=== PATIENT | male | born 1940 | race Caucasian/White ===

== ENCOUNTER → 2020-12-08 09:56 | Outpatient (BNVA) | payer MEDICARE, SELFPAY | PROVIDERS: PCP Internal Medicine; Visit Provider Urology | DX: Z13.89 Encounter for screening for other disorder (principal) | CPT/HCPCS: Q3014 ==

== ENCOUNTER 2021-02-09 12:18 | Outpatient (REF) | payer MEDICARE, SELFPAY ==
[2021-02-09 13:52] LABS: Glucose Urine UA NEG (NEG); Leukocyte Esterase Urine NEG (NEG); Nitrite Urine NEG (NEG); Urine Blood 3+ (NEG); Urine Ketones NEG (NEG); Urine Protein NEG (NEG-TRACE)
[2021-02-09 13:55] LABS: Appearance Urine CLOUDY; Color Urine DARK YELLOW
[2021-02-09 14:10] LABS: Renal Epithelial Cells Urine TRACE /LPF; Squamous Epithelial Cell Urine TRACE /LPF; WBC Urine 0-2 /HPF (0-4)
== END 2021-02-09 12:19 | disposition home or self-care (01) ==
LOC: HO.LAB 12:18
PROVIDERS: PCP Internal Medicine; Visit Provider Urology
DX: N30.91 Cystitis, unspecified with hematuria (principal)
CPT/HCPCS: 81001; 87086

== ENCOUNTER 2021-02-15 11:16 | Outpatient (REF) | payer MEDICARE, SELFPAY ==
[2021-02-15 12:04] LABS: Glucose Urine UA NEG (NEG); Leukocyte Esterase Urine NEG (NEG); Nitrite Urine POS (NEG); PH 6.5 (5.0-8.0); Specific Gravity - Urine 1.025 (1.005-1.025); Urine Blood 3+ (NEG); Urine Ketones NEG (NEG); Urine Protein 1+ MG/DL (NEG-TRACE)
[2021-02-15 12:07] LABS: Appearance Urine CLOUDY; Color Urine BROWN
[2021-02-15 12:13] LABS: RBC Urine TNTC /HPF (0); Squamous Epithelial Cell Urine 1+ /LPF; WBC Urine 0 /HPF (0-4)
== END 2021-02-15 11:17 | disposition home or self-care (01) ==
LOC: HO.LAB 11:16
PROVIDERS: PCP Internal Medicine; Visit Provider Urology
DX: N30.91 Cystitis, unspecified with hematuria (principal)
CPT/HCPCS: 81001

== ENCOUNTER 2021-03-15 09:43 | Outpatient (REF) | payer MEDICARE, SELFPAY ==
[2021-03-15 13:42] LABS: Urine Cytology See Pathology rpt
== END 2021-03-15 09:44 | disposition home or self-care (01) ==
LOC: CF 09:43
PROVIDERS: Visit Provider Urology
DX: N30.91 Cystitis, unspecified with hematuria (principal); C67.9 Malignant neoplasm of bladder, unspecified; N30.40 Irradiation cystitis without hematuria
CPT/HCPCS: 52000; 81002; 88112; 99212

== ENCOUNTER 2021-04-11 06:14 | Day surgery (SDC) | payer MEDICARE, SELFPAY ==
[2021-04-06 13:28] VITALS: BMI 27.4
--- NOTE | 2021-04-07 10:49 | P.CONAN_ITS ---
Documented by User: Betty Crandallney 04/07/21 10:49 HPI - Anesthesia Eval Consult details Narrative: 80yo M for TUR Bladder Tumor with Retrograde PMFSH Active Problems Active Problems: All Active Problems (Updated 04/06/21 @ 13:32 by Lexi Garvin) Prostate cancer (Acute) Radiation cystitis (Acute) Hematuria due to cystitis (Acute) Bladder cancer (Acute) Past Medical History Medical History (Updated 04/11/21 @ 07:48 by Sima Lopes) COVID-19 COVID-19 vaccine administered Elevated cholesterol Erectile dysfunction after radical prostatectomy GERD (gastroesophageal reflux disease) Gross hematuria History of COVID-19 HTN (hypertension) Hx of radiation therapy Peptic ulcer Prostate cancer Radiation cystitis Surgical History Surgical History H/O colonoscopy History of surgery Hx of radical prostatectomy Social History Social History Are you a primary manager home healthcare to a significant other at home: No Do you presently have visiting nurse or other home services: No Patient Tobacco Use Status: Former Tobacco user Quit Date: age 30 Tobacco use type: Cigarette Use of substances other than those prescribed or required for medical reasons: No Have you been hit, kicked, punched, or otherwise hurt by someone within the past year? If so, by whom?: No Are you DNR?: No Advance Directives: Yes (patients's son-advised to bring copy day of surgery) Advance Directives Information Provided: No Advance Directives on File: No Advance Directives Date on File: 04/11/21 Recently lost weight without trying: No Eating poorly because of decreased appetite: No Nutrition Risks: No Nutritional Risk Poor oral hygiene: No (upper partial) Meds Allergies Allergy/AdvReac Type Severity Reaction Status Date / Time NSAIDS (Non-Steroidal Allergy Severe caused Verified 04/06/21 13:34 Anti-Inflamma peptic ulcer Home Medications Medication Instructions Recorded Confirmed Last Taken Type albuterol sulfate 90 mcg/actuation 2 puff PO QID PRN 12/08/20 04/06/21 Unknown History aerosol inhaler amlodipine 10 mg-benazepril 40 mg 1 cap PO DAILY 12/08/20 04/06/21 Unknown History capsule atorvastatin 10 mg tablet 10 mg PO BEDTIME 12/08/20 04/06/21 Unknown History budesonide-formoterol HFA 80 2 puff PO BID 12/08/20 04/11/21 04/11/21 05:00 History mcg-4.5 mcg/actuation aerosol inhaler carvedilol 6.25 mg tablet 6.25 mg PO BID 12/08/20 04/11/21 04/11/21 05:00 History cetirizine 10 mg tablet 10 mg PO DAILY 12/08/20 04/11/21 04/11/21 05:00 History clindamycin HCl 300 mg capsule 300 mg PO TID 12/08/20 Unknown History famotidine 20 mg tablet 20 mg PO BID 12/08/20 Unknown History flu vacc [id number](65yr up)-PF 240 ml IM 12/08/20 Unknown History mcg/0.7 mL intramuscular syringe fluticasone propionate 50 1 spray INTRANASAL DAILY 12/08/20 04/06/21 Unknown History mcg/actuation nasal spray,suspension inhalational spacing device #1 ea 12/08/20 Unknown History omeprazole magnesium [Prilosec OTC] 20 mg PO DAILY PRN 04/06/21 04/06/21 Unknown History Exam Exam Date and Time: April 07, 2021 1049 Height,Weight and Vital Signs: Height 6 ft 1 in Weight 94.347 kg Assessment and Plan Assessment Anesthesia Assessment: Chart Reviewed Documented by User: Sima Lopes 04/11/21 07:50 [facility] Past Medical History Medical History (Updated 04/11/21 @ 07:48 by Sima Lopes) COVID-19 COVID-19 vaccine administered Elevated cholesterol Erectile dysfunction after radical prostatectomy GERD (gastroesophageal reflux disease) Gross hematuria History of COVID-19 HTN (hypertension) Hx of radiation therapy Peptic ulcer Prostate cancer Radiation cystitis Family History Family history of problems with anesthesia: No Surgical History Surgical History H/O colonoscopy History of surgery Hx of radical prostatectomy History of Problems with Anesthesia: No Social History Social History Are you a primary manager home healthcare to a significant other at home: No Do you presently have visiting nurse or other home services: No Patient Tobacco Use Status: Former Tobacco user Quit Date: age 30 Tobacco use type: Cigarette Use of substances other than those prescribed or required for medical reasons: No Have you been hit, kicked, punched, or otherwise hurt by someone within the past year? If so, by whom?: No Are you DNR?: No Advance Directives: Yes (patients's son-advised to bring copy day of surgery) Advance Directives Information Provided: No Advance Directives on File: No Advance Directives Date on File: 04/11/21 Recently lost weight without trying: No Eating poorly because of decreased appetite: No Nutrition Risks: No Nutritional Risk Poor oral hygiene: No (upper partial) Meds Allergies Allergy/AdvReac Type Severity Reaction Status Date / Time NSAIDS (Non-Steroidal Allergy Severe caused Verified 04/06/21 13:34 Anti-Inflamma peptic ulcer Home Medications Medication Instructions Recorded Confirmed Last Taken Type albuterol sulfate 90 mcg/actuation 2 puff PO QID PRN 12/08/20 04/06/21 Unknown History aerosol inhaler amlodipine 10 mg-benazepril 40 mg 1 cap PO DAILY 12/08/20 04/06/21 Unknown History capsule atorvastatin 10 mg tablet 10 mg PO BEDTIME 12/08/20 04/06/21 Unknown History budesonide-formoterol HFA 80 2 puff PO BID 12/08/20 04/11/21 04/11/21 05:00 History mcg-4.5 mcg/actuation aerosol inhaler carvedilol 6.25 mg tablet 6.25 mg PO BID 12/08/20 04/11/21 04/11/21 05:00 History cetirizine 10 mg tablet 10 mg PO DAILY 12/08/20 04/11/21 04/11/21 05:00 History clindamycin HCl 300 mg capsule 300 mg PO TID 12/08/20 Unknown History famotidine 20 mg tablet 20 mg PO BID 12/08/20 Unknown History flu vacc [id number](65yr up)-PF 240 ml IM 12/08/20 Unknown History mcg/0.7 mL intramuscular syringe fluticasone propionate 50 1 spray INTRANASAL DAILY 12/08/20 04/06/21 Unknown History mcg/actuation nasal spray,suspension inhalational spacing device #1 ea 12/08/20 Unknown History omeprazole magnesium [Prilosec OTC] 20 mg PO DAILY PRN 04/06/21 04/06/21 Unknown History Exam Height,Weight and Vital Signs: Vital Signs Temp Pulse Resp BP Pulse Ox 04/11/21 06:51 97 F 62 20 142/74 H 94 Airway Mallampati Class: II TM Dist: >3cm Neck ROM: Full Partial: Upper Heart: RRR Lungs: CTAB Assessment and Plan Assessment Anesthesia Assessment: Anesthesia Plan Discussed and Chart Reviewed Final Anesthetic Review NPO: Yes ASA Class: II Final Preanesthetic Review: No Changes in Pt Med Stat, Meds/Allgs Chart Re viewed, Consent Obtained/Reviewed and Anes Risks/Benef Reviewed Patient Risk: Low Procedure Risk: Low Anesthetic Plan Anesthetic Plan: GA Disposition: Standard PACU
--- NOTE | ~2021-04-11 | FL_ITS ---
EXAMINATION: FL XR WITH IMAGES CLINICAL INFORMATION: Bilateral retrogrades. COMPARISON: None TECHNIQUE: Fluoroscopy performed by Dr. Mp Bashir. Fluoroscopy Time: 0.5 minutes. Total Dose: 8.88 mGy. Images: 3. FINDINGS: There is suggestion of partial duplicated collecting system on both sides with upper pole infundibulum merging with the extrarenal pelves. There is no hydronephrosis or caliectasis. No pelvicalyceal filling defect demonstrated. FL/FL guidance in OR IMPRESSION: No hydronephrosis. Partial bilateral duplicated collecting system.
[2021-04-11] MEDS: levoFLOXacin 500 MG TABLET PO (06:40)
[2021-04-11] MEDS: Lactated Ringers 1,000 ML 100 ML IVCONT (06:46)
[2021-04-11 06:51] VITALS: BP 142/74; PULSE 62; RESP 20; TEMP 36.1; O2SAT 94
--- NOTE | 2021-04-11 07:17 | MHC.SHP ---
Pre-Procedural Eval Section A The patient is an INPATIENT: No Changes since office visit: No Cold of Flu in the past 2 weeks, No New Medical Problems, No Changes in Medication and No Patient answered all questions The History & Physical has been completed within 30 days and I have reviewed it.: Yes Section B Chief Complaint: malignant neoplasm ob bladder Allergies: Allergies Allergy/AdvReac Type Severity Reaction Status Date / Time NSAIDS (Non-Steroidal Allergy Severe caused Verified 04/06/21 13:34 Anti-Inflamma peptic ulcer Plan Diagnosis/Plan: Unchanged (TURBT with retrogrades) I have reviewed the history and physical and performed a pertinent physical examination on my patient. No changes have occurred unless specified.
--- NOTE | 2021-04-11 07:25 | MHC.SHP ---
Pre-Procedural Eval Section A The patient is an INPATIENT: No Changes since office visit: No Cold of Flu in the past 2 weeks, No New Medical Problems, No Changes in Medication and No Patient answered all questions The History & Physical has been completed within 30 days and I have reviewed it.: Yes Section B Chief Complaint: malignant neoplasm ob bladder Allergies: Allergies Allergy/AdvReac Type Severity Reaction Status Date / Time NSAIDS (Non-Steroidal Allergy Severe caused Verified 04/06/21 13:34 Anti-Inflamma peptic ulcer Plan Diagnosis/Plan: Unchanged (bladder washout) I have reviewed the history and physical and performed a pertinent physical examination on my patient. No changes have occurred unless specified.
[2021-04-11 08:30] VITALS: BP 126/68; PULSE 62; RESP 16; TEMP 36.1; O2SAT 96
[2021-04-11 08:35] VITALS: BP 132/62; PULSE 60; RESP 16; O2SAT 93
[2021-04-11 08:40] VITALS: BP 135/76; PULSE 63; RESP 16; O2SAT 93
--- NOTE | 2021-04-11 08:40 | W.PM.OPN ---
Operative Note Operative Note Date of Service: 04/11/21 Narrative: PreOperative Diagnosis: bladder cancer Post Operative Diagnosis: bladder cancer Procedure: TURBT with bilateral retrograde Surgeon: Dr Mp Bashir Anesthesia: general Indications for procedure: This is a 80-year-old male. Status post radiation for prostate cancer. Radiation cystitis. Presents with hematuria. On cystoscopy in office found to have superficial changes in various areas of his bladder mucosa. Procedure: After informed consent was verified the patient was brought to the operating room and placed in a supine position. anesthesia was administered per protocol. the patient was placed in a modified dorsal lithotomy position and prepped and draped in a sterile fashion. Safety pause time-out was performed. Antibiotics were confirmed. A 22 Persian cystoscope was inserted without difficulty. No evidence of abnormality was seen in the anterior or posterior urethra. The bladder had evidence of radiation cystitis with neovascularity and mucosal change. Bilateral retrograde examination performed. Both distal ureteric orifices were narrowed secondary to radiation change. Distal portion of the ureter was also narrowed. A 26 Persian continuous flow resectoscope was inserted per urethra. The visual obturator was used in order to minimize potential for urethral damage. Areas of mucosal change with fulgurated. Using the narrow beam light function at risk areas of the mucosa were identified info graded. On the right side wall there was an area of change with fat deposit. This was resected and pathology was sent. The patient tolerated the procedure well. They were extubated in the operating room and transferred in stable condition to the recovery area. Pathology: Bladder cancer sample Drains: None
[2021-04-11 08:45] VITALS: BP 141/71; PULSE 60; RESP 16; O2SAT 93
[2021-04-11] MEDS: Phenazopyridine HCL 100 MG TABLET PO (08:51)
[2021-04-11 09:00] VITALS: BP 143/72; PULSE 60; RESP 16; TEMP 36.1; O2SAT 94
== END 2021-04-11 09:33 | disposition home or self-care (01) ==
PROVIDERS: PCP Internal Medicine; Visit Provider Urology
PROC: 0TBB8ZZ Excision of Bladder, Via Natural or Artificial Opening Endoscopic (ICD-10-PCS; CPT 52234; principal; 2021-04-11 07:30)
DX: C67.9 Malignant neoplasm of bladder, unspecified (principal); N30.41 Irradiation cystitis with hematuria; I10 Essential (primary) hypertension; Z85.46 Personal history of malignant neoplasm of prostate; Z79.899 Other long term (current) drug therapy; Z88.6 Allergy status to analgesic agent
CPT/HCPCS: 52234; 88307; 88341; 88342; J1100; J2250; J2405; J3010; Q9967

== ENCOUNTER 2021-04-11 14:59 | Emergency (ER) | payer MEDICARE, SELFPAY ==
[2021-04-11 15:33] VITALS: BP 155/79; PULSE 73; RESP 18; TEMP 36.8; O2SAT 96; BMI 26.9
[2021-04-11 16:50] VITALS: BP 161/79; PULSE 78; RESP 16; TEMP 36.1; O2SAT 100
--- NOTE | 2021-04-11 17:11 | PC.NURSE ---
Patient coming in after having surgery on his bladder today and being discharged without voiding. Per pt he still has not voided despite intake of fluids- feels the need but is unable to. Bladder scan showed 425mL- Dr. Montanez made aware of the situation and verbal order for rocha placed. 16f rocha catheter placed with immediate drainage of >400ml of tomas colored urine. Will rescan bladder.
--- NOTE | 2021-04-11 17:15 | ED_ITS ---
HPI - Male Genitourinary General Chief complaint: Urogenital-Male Stated complaint: diff urinating Time Seen by Provider: 04/11/21 17:15 Source: patient Mode of arrival: ambulatory Limitations: no limitations History of Present Illness HPI Narrative: Patient had cystoscopy today for bladder tumor after procedure patient could not urinate came here with bladder scan showing urine about 425 cc patient had history of prostate cancer in the past and had TURP surgery also reporting Hardin catheter patient had about 600 cc urine output Related Data Home Medications Medication Instructions Recorded Confirmed albuterol sulfate 90 mcg/actuation 2 puff PO QID PRN 12/08/20 04/06/21 aerosol inhaler amlodipine 10 mg-benazepril 40 mg 1 cap PO DAILY 12/08/20 04/06/21 capsule atorvastatin 10 mg tablet 10 mg PO BEDTIME 12/08/20 04/06/21 budesonide-formoterol HFA 80 2 puff PO BID 12/08/20 04/11/21 mcg-4.5 mcg/actuation aerosol inhaler carvedilol 6.25 mg tablet 6.25 mg PO BID 12/08/20 04/11/21 cetirizine 10 mg tablet 10 mg PO DAILY 12/08/20 04/11/21 clindamycin HCl 300 mg capsule 300 mg PO TID 12/08/20 famotidine 20 mg tablet 20 mg PO BID 12/08/20 flu vacc [id number](65yr up)-PF 240 ml IM 12/08/20 mcg/0.7 mL intramuscular syringe fluticasone propionate 50 1 spray INTRANASAL DAILY 12/08/20 04/06/21 mcg/actuation nasal spray,suspension inhalational spacing device #1 ea 12/08/20 omeprazole magnesium [Prilosec OTC] 20 mg PO DAILY PRN 04/06/21 04/06/21 Previous Rx's Medication Instructions Recorded ciprofloxacin HCl 250 mg tablet 250 mg PO BID 3 Days #6 tab 02/11/21 sulfamethoxazole 800 1 tab PO BID 7 Days #14 tab 02/17/21 mg-trimethoprim 160 mg tablet tranexamic acid 650 mg PO BID 5 Days #10 tab 04/11/21 trimethoprim 100 mg PO Q12H 10 Days #20 tab 04/11/21 Allergies Allergy/AdvReac Type Severity Reaction Status Date / Time NSAIDS (Non-Steroidal Allergy Severe caused Verified 04/06/21 13:34 Anti-Inflamma peptic ulcer Review of Systems Review of Systems: Yes all other systems are reviewed and are negative [facility] Past Medical History Medical History COVID-19 COVID-19 vaccine administered Elevated cholesterol Erectile dysfunction after radical prostatectomy GERD (gastroesophageal reflux disease) Gross hematuria History of COVID-19 HTN (hypertension) Hx of radiation therapy Peptic ulcer Prostate cancer Radiation cystitis Surgical History H/O colonoscopy History of surgery Hx of radical prostatectomy Social History Social History Are you a primary manager critical care to a significant other at home: No Do you presently have visiting nurse or other home services: No Patient Tobacco Use Status: Former Tobacco user Quit Date: age 30 Tobacco use type: Cigarette Advance Directives: No Advance Directives Information Provided: Yes Advance Directives Date on File: 04/11/21 Physical Exam Vital Signs: Vital Signs: Last Vital Signs Temp 97 F 04/11/21 16:50 Pulse 78 04/11/21 16:50 Resp 16 04/11/21 16:50 BP 161/79 H 04/11/21 16:50 Pulse Ox 100 04/11/21 16:50 Body Mass Index 26.9 Appearance: Alert. Oriented X3. No acute distress. Eyes: PERRLA, No Nystagmus ENT: Pharynx normal. Oral Mucosa moist Neck: Normal inspection. Neck supple. CVS: Normal heart rate and rhythm. Pulses normal. Respiratory: No respiratory distress. Equal air entry bilateral, no wheezing/rales/rhonchi Abdomen: Soft and bladder fullness+ Bowel sounds are present, no mass palpable, no CVA tenderness Skin: Skin warm and dry. Normal skin color. Normal skin turgor. Extremities: No lower extremity edema. No calf tenderness Neuro: Oriented X 3. No motor deficit. No sensory deficit. MDM - Male Genitourinary MDM Narrative Medical decision making narrative: Patient with acute urinary retention status post Hardin catheter placement already prescribed antibiotics by urologist will discharge patient home advised to follow with urologist Discharge Plan Discharge Clinical Impression: Acute retention of urine Patient Disposition: Home, Self-Care Instructions: Urinary Retention in Men (ED), Hardin Catheter Placement and Care (ED) Additional Instructions: Hardin catheter care as advised follow up with urologist Prescriptions: No Action ciprofloxacin HCl 250 mg tablet 250 mg PO BID 3 Days Qty: 6 RF: 0 sulfamethoxazole-trimethoprim [Bactrim DS] 800-160 mg tablet 1 tab PO BID 7 Days Qty: 14 RF: 0 omeprazole magnesium [Prilosec OTC] 20 mg Tablet,Delayed Release (Dr/Ec) 20 mg PO DAILY PRN (Reason: Acid Reflux) RF: 0 trimethoprim 100 mg tablet 100 mg PO Q12H 10 Days Qty: 20 RF: 0 tranexamic acid 650 mg tablet 650 mg PO BID 5 Days Qty: 10 RF: 0 amlodipine-benazepril 10-40 mg capsule 1 cap PO DAILY RF: 0 atorvastatin 10 mg tablet 10 mg PO BEDTIME RF: 0 carvedilol 6.25 mg tablet 6.25 mg PO BID RF: 0 fluticasone propionate 50 mcg/actuation spray,suspension 1 spray intranasal DAILY RF: 0 cetirizine 10 mg tablet 10 mg PO DAILY RF: 0 budesonide-formoterol 80-4.5 mcg/actuation HFA aerosol inhaler 2 puff PO BID RF: 0 famotidine 20 mg tablet 20 mg PO BID RF: 0 clindamycin HCl 300 mg capsule 300 mg PO TID RF: 0 flu vacc [id number](65yr up)-PF 240 mcg/0.7 mL syringe IM RF: 0 albuterol sulfate 90 mcg/actuation HFA aerosol inhaler 2 puff PO QID PRN (Reason: dyspnea) RF: 0 (DME) inhalational spacing device Spacer See Rx Instructions ea .ROUTE DAILY Qty: 1 RF: 0
--- NOTE | 2021-04-11 17:31 | PC.NURSE ---
Patient bladder scanned after rocha placement for a total of 0mL. Dr. Du at bedside, plan to d/c patient with leg bag and follow up with urologist. Patient agreeable, expresses relief after rocha placement. Advised to call Dr. Bashir in the morning.
--- NOTE | 2021-04-11 17:43 | PC.NURSE ---
Leg bag placed on patient for d/c. Total of 560mL of tomas colored urine drained. Patient educated on rocha care and advised again to call urologist in the morning.
== END 2021-04-11 18:05 | disposition home or self-care (01) ==
PROVIDERS: Emergency Provider Internal Medicine; PCP Internal Medicine
DX: R33.9 Retention of urine, unspecified (principal); Z98.890 Other specified postprocedural states; I10 Essential (primary) hypertension; E78.5 Hyperlipidemia, unspecified; Z85.46 Personal history of malignant neoplasm of prostate; Z85.51 Personal history of malignant neoplasm of bladder; Z79.02 Long term (current) use of antithrombotics/antiplatelets; Z79.899 Other long term (current) drug therapy
CPT/HCPCS: 51702; 51798; 99284; J2250; Q9967

== ENCOUNTER → 2021-04-18 08:52 | Outpatient (BNVA) | payer MEDICARE, SELFPAY | PROVIDERS: PCP Internal Medicine | DX: C61 Malignant neoplasm of prostate (principal); N30.40 Irradiation cystitis without hematuria | CPT/HCPCS: 51700; 99212 ==

== ENCOUNTER 2021-04-19 01:36 | Emergency (ER) | payer MEDICARE, SELFPAY ==
[2021-04-19 01:46] VITALS: BP 170/87; PULSE 73; RESP 20; TEMP 35.7; O2SAT 93; BMI 27.3
--- NOTE | 2021-04-19 04:41 | ED.MALEGU ---
HPI - Male Genitourinary General Chief complaint: Urogenital-Male Stated complaint: trouble urinating Time Seen by Provider: 04/19/21 04:40 Source: patient Mode of arrival: ambulatory History of Present Illness HPI Narrative: This is a 80-year-old gentleman who underwent a urologic procedure last Sunday and then developed urinary retention afterwards and was seen here in the emergency room and had a Hardin catheter placed. Patient states that everything was going fine and he had the catheter removed yesterday in Dr. Bashir'is office and had been able to urinate on his own without difficulty several times but then woke up this evening and was unable to urinate began developing significant pain. He denies any associated back pain or fever, chills. Related Data Home Medications Medication Instructions Recorded Confirmed albuterol sulfate 90 mcg/actuation 2 puff PO QID PRN 12/08/20 04/06/21 aerosol inhaler amlodipine 10 mg-benazepril 40 mg 1 cap PO DAILY 12/08/20 04/06/21 capsule atorvastatin 10 mg tablet 10 mg PO BEDTIME 12/08/20 04/06/21 budesonide-formoterol HFA 80 2 puff PO BID 12/08/20 04/11/21 mcg-4.5 mcg/actuation aerosol inhaler carvedilol 6.25 mg tablet 6.25 mg PO BID 12/08/20 04/11/21 cetirizine 10 mg tablet 10 mg PO DAILY 12/08/20 04/11/21 clindamycin HCl 300 mg capsule 300 mg PO TID 12/08/20 famotidine 20 mg tablet 20 mg PO BID 12/08/20 flu vacc [id number](65yr up)-PF 240 ml IM 12/08/20 mcg/0.7 mL intramuscular syringe fluticasone propionate 50 1 spray INTRANASAL DAILY 12/08/20 04/06/21 mcg/actuation nasal spray,suspension inhalational spacing device #1 ea 12/08/20 omeprazole magnesium [Prilosec OTC] 20 mg PO DAILY PRN 04/06/21 04/06/21 Previous Rx's Medication Instructions Recorded ciprofloxacin HCl 250 mg tablet 250 mg PO BID 3 Days #6 tab 02/11/21 sulfamethoxazole 800 1 tab PO BID 7 Days #14 tab 02/17/21 mg-trimethoprim 160 mg tablet tranexamic acid 650 mg PO BID 5 Days #10 tab 04/11/21 trimethoprim 100 mg PO Q12H 10 Days #20 tab 04/11/21 oxybutynin chloride 5 mg 5 mg PO Q8H PRN 5 Days #15 tab 04/12/21 tablet,extended release 24 hr phenazopyridine 100 mg tablet 100 mg PO TID PRN 5 Days #15 tab 04/15/21 Allergies Allergy/AdvReac Type Severity Reaction Status Date / Time NSAIDS (Non-Steroidal Allergy Severe caused Verified 04/18/21 08:59 Anti-Inflamma peptic ulcer aspirin [ASA] AdvReac Unknown Verified 04/19/21 01:49 Review of Systems Review of Systems: Pertinent positives and negatives as stated in HPI 10 point review of systems otherwise negative. PMFSH Past Medical History Source: nursing notes reviewed Medical History COVID-19 COVID-19 vaccine administered Elevated cholesterol Erectile dysfunction after radical prostatectomy GERD (gastroesophageal reflux disease) Gross hematuria History of COVID-19 HTN (hypertension) Hx of radiation therapy Peptic ulcer Prostate cancer Radiation cystitis Surgical History H/O colonoscopy History of surgery Hx of radical prostatectomy Social History Social History Are you a primary pet care associate to a significant other at home: No Do you presently have visiting nurse or other home services: No Patient Tobacco Use Status: Former Tobacco user Quit Date: age 30 Tobacco use type: Cigarette Advance Directives: No Advance Directives Date on File: 04/11/21 Physical Exam Vital Signs: Vital Signs: Last Vital Signs Temp 96.2 F L 04/19/21 01:46 Pulse 68 04/19/21 04:56 Resp 15 04/19/21 04:56 BP 134/65 04/19/21 04:56 Pulse Ox 93 04/19/21 04:56 Body Mass Index 27.3 VITAL SIGNS: Reviewed. GENERAL: Well developed, well nourished, in no acute distress. HEAD: Normocephalic/atraumatic EYES: PERRLA, EOMI OROPHARYNX: no oral lesions noted, posterior pharynx clear LUNGS: Normal breath sounds. No adventitious sounds or accessory muscle use. SpO2<93> CARDIOVASCULAR: Regular rate and rhythm without noted murmurs ABDOMEN: Soft, discomfort at suprapubic, non-distended with bowel sounds. NEUROLOGIC: Alert and oriented x 4. Strength and sensation to light touch were grossly intact x 4. Course Course Course Narrative: This is a 80-year-old male with history and clinical presentation consistent with acute urinary retention, Hardin catheter will be placed, and patient will be discharged with follow-up with Dr. Prado. Patient with good relief of symptoms and good urinary output after placement of Hardin catheter. Patient discharged home in stable condition. Discharge Plan Discharge Clinical Impression: Acute urinary retention Patient Disposition: Home, Self-Care Instructions: Hardin Catheter Placement and Care (ED) Additional Instructions: Follow-up with Dr. Prado in the morning for re-evaluation. Return to the ER for acute worsening of symptoms. Prescriptions: No Action ciprofloxacin HCl 250 mg tablet 250 mg PO BID 3 Days Qty: 6 RF: 0 sulfamethoxazole-trimethoprim [Bactrim DS] 800-160 mg tablet 1 tab PO BID 7 Days Qty: 14 RF: 0 oxybutynin chloride 5 mg tablet extended release 24hr 5 mg PO Q8H PRN (Reason: OVERACTIVE BLADDER) 5 Days Qty: 15 RF: 0 phenazopyridine [Pyridium] 100 mg tablet 100 mg PO TID PRN (Reason: pain) 5 Days Qty: 15 RF: 0 omeprazole magnesium [Prilosec OTC] 20 mg Tablet,Delayed Release (Dr/Ec) 20 mg PO DAILY PRN (Reason: Acid Reflux) RF: 0 trimethoprim 100 mg tablet 100 mg PO Q12H 10 Days Qty: 20 RF: 0 tranexamic acid 650 mg tablet 650 mg PO BID 5 Days Qty: 10 RF: 0 amlodipine-benazepril 10-40 mg capsule 1 cap PO DAILY RF: 0 atorvastatin 10 mg tablet 10 mg PO BEDTIME RF: 0 carvedilol 6.25 mg tablet 6.25 mg PO BID RF: 0 fluticasone propionate 50 mcg/actuation spray,suspension 1 spray intranasal DAILY RF: 0 cetirizine 10 mg tablet 10 mg PO DAILY RF: 0 budesonide-formoterol 80-4.5 mcg/actuation HFA aerosol inhaler 2 puff PO BID RF: 0 famotidine 20 mg tablet 20 mg PO BID RF: 0 clindamycin HCl 300 mg capsule 300 mg PO TID RF: 0 flu vacc [id number](65yr up)-PF 240 mcg/0.7 mL syringe IM RF: 0 albuterol sulfate 90 mcg/actuation HFA aerosol inhaler 2 puff PO QID PRN (Reason: dyspnea) RF: 0 (DME) inhalational spacing device Spacer See Rx Instructions ea .ROUTE DAILY Qty: 1 RF: 0 Referrals: Mp Bashir MD [Physician] - 2 days
[2021-04-19 04:56] VITALS: BP 134/65; PULSE 68; RESP 15; O2SAT 93
== END 2021-04-19 06:21 | disposition home or self-care (01) ==
LOC: HO.ED 04:50
PROVIDERS: Emergency Provider Student in an Organized Health Care Education/Training Program
DX: R33.9 Retention of urine, unspecified (principal); I10 Essential (primary) hypertension
CPT/HCPCS: 51702; 99284

== ENCOUNTER → 2021-04-27 10:27 | Outpatient (BNVA) | payer MEDICARE, SELFPAY | PROVIDERS: PCP Internal Medicine; Visit Provider Urology | DX: C61 Malignant neoplasm of prostate (principal); C67.9 Malignant neoplasm of bladder, unspecified | CPT/HCPCS: 51700; 51798; 99212 ==

== ENCOUNTER → 2021-05-04 14:23 | Outpatient (BNVA) | payer MEDICARE, SELFPAY | PROVIDERS: PCP Internal Medicine | DX: C61 Malignant neoplasm of prostate (principal); C67.9 Malignant neoplasm of bladder, unspecified | CPT/HCPCS: 99211 ==

== ENCOUNTER 2021-05-17 09:55 | Outpatient (REF) | payer MEDICARE, SELFPAY | END 2021-05-17 09:56 | disposition home or self-care (01) | LOC: HO.LAB 09:55 | PROVIDERS: PCP Internal Medicine | DX: N30.91 Cystitis, unspecified with hematuria (principal) | CPT/HCPCS: 87086; 87088; 87186 ==

== ENCOUNTER → 2021-05-25 08:50 | Outpatient (BNVA) | payer MEDICARE, SELFPAY | PROVIDERS: PCP Internal Medicine; Visit Provider Urology | DX: C61 Malignant neoplasm of prostate (principal) | CPT/HCPCS: 51700; 51798; 99212 ==

== ENCOUNTER 2021-07-11 08:01 | Outpatient (RCR) | payer MEDICARE, SELFPAY ==
--- NOTE | ~2021-07-11 | XR_ITS ---
EXAMINATION: XR CHEST CLINICAL INFORMATION: Preprocedure. COMPARISON: None TECHNIQUE: 2 views of the chest were obtained. FINDINGS: No significant abnormality is noted involving the heart, lungs, mediastinum, bony thorax or soft tissues. XR/XR chest 2V IMPRESSION: Unremarkable chest examination.
[2021-07-11 10:31] LABS: MANUAL DIFF FLAG NO
[2021-07-11 10:44] LABS: Basophils Absolute Auto 0.1 X10*3/uL (0.0-0.2); Basophils Percent Auto 0.9 % (0-2); Eosinophils Absolute Auto 0.5 X10*3/uL (0.0-0.4); Eosinophils Percent Auto 6.4 % (0-4); Hematocrit 43.7 % (42-52); Hemoglobin 14.7 g/dl (14.0-18.0); Imm Gran Abs Auto 0.02 X10*3/uL (0.00-0.03); Imm Gran Pct Auto 0.3 % (0.0-0.4); Lymphocytes Percent Auto 13.7 % (20-40); Mean Corpuscular HGB Conc 33.6 g/dl (31.0-36.0); Mean Corpuscular Hemoglobin 32.3 pg (27.0-33.0); Mean Platelet Volume 10.7 fL (9.4-12.4); Monocytes Absolute Auto 0.5 X10*3/uL (0.1-1.2); Monocytes Percent Auto 6.7 % (2-11); Platelet Count 249 X10*3/uL (160-400); Red Blood Count 4.55 X10*6/uL (4.60-5.80); Red Cell Distribution Width 16.5 % (11.0-16.0)
[2021-07-11 11:11] LABS: Anion Gap 11 (12-20); Blood Urea Nitrogen 22 mg/dL (9-16); C Reactive Protein 0.17 mg/dL (< or = 0.50); Calcium 9.5 mg/dL (8.4-10.2); Carbon Dioxide 26 mmol/L (22-29); Chloride 108 mmol/L (96-108); Estimated Glomerular Filt Rate > 60; Glucose Fasting 104 mg/dL (60-99); Potassium 4.8 mmol/L (3.3-5.1); Sodium 140 mmol/L (135-145)
[2021-07-11 11:15] LABS: Estimated Average Glucose 111 mg/dL; Hemoglobin A1c % 5.5 %
[2021-07-11 11:29] LABS: Erythrocyte Sedimentation Rate 11 MM/HR (0-15)
== END 2021-09-27 09:20 | disposition home or self-care (01) ==
LOC: HO.WCC 08:01
PROVIDERS: PCP Internal Medicine; Visit Provider Physician Assistant
DX: N30.41 Irradiation cystitis with hematuria (principal); C67.9 Malignant neoplasm of bladder, unspecified; G62.9 Polyneuropathy, unspecified; R32 Unspecified urinary incontinence; I10 Essential (primary) hypertension; Z87.891 Personal history of nicotine dependence; Z85.46 Personal history of malignant neoplasm of prostate; Z87.440 Personal history of urinary (tract) infections; Z86.16 Personal history of COVID-19
CPT/HCPCS: 36415; 71046; 80048; 83036; 84134; 85025; 85652; 86140; 99183; 99211; 99213

== ENCOUNTER 2021-07-25 06:07 | Day surgery (SDC) | payer MEDICARE, SELFPAY ==
[2021-07-20 10:54] VITALS: BMI 26.9
--- NOTE | 2021-07-22 10:31 | HO.ANESPROP2 ---
Documented by User: Betty Peterson NP 07/22/21 10:34 HPI - Anesthesia Eval Consult details Narrative: 81yo M for Cystoscopy & Bladder Biopsy s/p TURBT 04/11/21 with GA-LMA 4 PMFSH Active Problems Active Problems: All Active Problems (Updated 07/20/21 @ 10:51 by Kayla Yepez, RN) Prostate cancer (Acute) Radiation cystitis (Acute) Hematuria due to cystitis (Acute) Bladder cancer (Acute) Past Medical History Medical History COVID-19 COVID-19 vaccine administered Elevated cholesterol Erectile dysfunction after radical prostatectomy GERD (gastroesophageal reflux disease) Gross hematuria History of COVID-19 HTN (hypertension) Hx of radiation therapy Peptic ulcer Prostate cancer Radiation cystitis Urinary bladder incontinence Family History Family history of problems with anesthesia: No Surgical History Surgical History H/O colonoscopy History of bladder surgery Hx of appendectomy Hx of cystoscopy Hx of radical prostatectomy History of Problems with Anesthesia: No Social History Social History Are you a primary wound care coordinator to a significant other at home: No Do you presently have visiting nurse or other home services: No Patient Tobacco Use Status: Former Tobacco user Quit Date: 1969 Tobacco use type: Cigarette Are you DNR?: No Advance Directives: Yes Advance Directives Information Provided: Yes Advance Directives on File: Yes Advance Directives Date on File: 04/11/21 Meds Allergies Allergy/AdvReac Type Severity Reaction Status Date / Time NSAIDS (Non-Steroidal Allergy Severe caused Verified 07/20/21 10:52 Anti-Inflamma peptic ulcer ciprofloxacin [From Cipro] Allergy Intermediate Rash Verified 07/20/21 10:52 nitrofurantoin Allergy Intermediate Rash Verified 07/20/21 10:52 aspirin [ASA] AdvReac Severe caused Verified 07/20/21 10:52 peptic ulcer sulfamethoxazole AdvReac Intermediate Joint Pain Verified 07/20/21 10:52 [From Bactrim] trimethoprim [From Bactrim] AdvReac Intermediate Joint Pain Verified 07/20/21 10:52 Home Medications Medication Instructions Recorded Confirmed Last Taken Type albuterol sulfate 90 mcg/actuation 2 puff PO QID PRN 12/08/20 07/20/21 Unknown History aerosol inhaler amlodipine 10 mg-benazepril 40 mg 1 cap PO DAILY 12/08/20 07/20/21 07/25/21 History capsule atorvastatin 10 mg tablet 10 mg PO BEDTIME 12/08/20 07/20/21 Unknown History budesonide-formoterol HFA 80 2 puff PO BID 12/08/20 05/23/21 04/11/21 05:00 History mcg-4.5 mcg/actuation aerosol inhaler carvedilol 6.25 mg tablet 6.25 mg PO BID 12/08/20 07/20/21 07/25/21 History cetirizine 10 mg tablet 10 mg PO DAILY 12/08/20 07/20/21 04/11/21 05:00 History flu vacc [id number](65yr up)-PF 240 ml IM 12/08/20 Unknown History mcg/0.7 mL intramuscular syringe fluticasone propionate 50 1 spray INTRANASAL DAILY 12/08/20 07/20/21 Unknown History mcg/actuation nasal spray,suspension inhalational spacing device #1 ea 12/08/20 Unknown History omeprazole magnesium 20 mg 20 mg PO DAILY PRN 04/06/21 07/20/21 Unknown History tablet,delayed release (Prilosec OTC) Exam Exam Date and Time: July 22, 2021 1031 Height,Weight and Vital Signs: Height 6 ft 2 in Weight 95.254 kg Pertinent Lab Results Pertinent Lab Results: Laboratory Tests 07/11/21 07/11/21 09:40 09:40 WBC 7.0 Hgb 14.7 Hct 43.7 Plt Count 249 Sodium 140 Potassium 4.8 Chloride 108 Carbon Dioxide 26 BUN 22 H Creatinine 1.05 Assessment and Plan Assessment Anesthesia Assessment: Chart Reviewed Final Anesthetic Review Family History of Problems with Anesthesia: No History of Problems with Anesthesia: No Documented by User: Makenzie Calderón MD 07/25/21 07:57 PMFSH Past Medical History Medical History COVID-19 COVID-19 vaccine administered Elevated cholesterol Erectile dysfunction after radical prostatectomy GERD (gastroesophageal reflux disease) Gross hematuria History of COVID-19 HTN (hypertension) Hx of radiation therapy Peptic ulcer Prostate cancer Radiation cystitis Urinary bladder incontinence Surgical History Surgical History H/O colonoscopy History of bladder surgery Hx of appendectomy Hx of cystoscopy Hx of radical prostatectomy Social History Social History Are you a primary wound care coordinator to a significant other at home: No Do you presently have visiting nurse or other home services: No Patient Tobacco Use Status: Former Tobacco user Quit Date: 1969 Tobacco use type: Cigarette Are you DNR?: No Advance Directives: Yes Advance Directives Information Provided: Yes Advance Directives on File: Yes Advance Directives Date on File: 04/11/21 Meds Allergies Allergy/AdvReac Type Severity Reaction Status Date / Time NSAIDS (Non-Steroidal Allergy Severe caused Verified 07/20/21 10:52 Anti-Inflamma peptic ulcer ciprofloxacin [From Cipro] Allergy Intermediate Rash Verified 07/20/21 10:52 nitrofurantoin Allergy Intermediate Rash Verified 07/20/21 10:52 aspirin [ASA] AdvReac Severe caused Verified 07/20/21 10:52 peptic ulcer sulfamethoxazole AdvReac Intermediate Joint Pain Verified 07/20/21 10:52 [From Bactrim] trimethoprim [From Bactrim] AdvReac Intermediate Joint Pain Verified 07/20/21 10:52 Home Medications Medication Instructions Recorded Confirmed Last Taken Type albuterol sulfate 90 mcg/actuation 2 puff PO QID PRN 12/08/20 07/20/21 Unknown History aerosol inhaler amlodipine 10 mg-benazepril 40 mg 1 cap PO DAILY 12/08/20 07/20/21 07/25/21 History capsule atorvastatin 10 mg tablet 10 mg PO BEDTIME 12/08/20 07/20/21 Unknown History budesonide-formoterol HFA 80 2 puff PO BID 12/08/20 05/23/21 04/11/21 05:00 History mcg-4.5 mcg/actuation aerosol inhaler carvedilol 6.25 mg tablet 6.25 mg PO BID 12/08/20 07/20/21 07/25/21 History cetirizine 10 mg tablet 10 mg PO DAILY 12/08/20 07/20/21 04/11/21 05:00 History flu vacc [id number](65yr up)-PF 240 ml IM 12/08/20 Unknown History mcg/0.7 mL intramuscular syringe fluticasone propionate 50 1 spray INTRANASAL DAILY 12/08/20 07/20/21 Unknown History mcg/actuation nasal spray,suspension inhalational spacing device #1 ea 12/08/20 Unknown History omeprazole magnesium 20 mg 20 mg PO DAILY PRN 04/06/21 07/20/21 Unknown History tablet,delayed release (Prilosec OTC) Exam Airway Mallampati Class: III TM Dist: >3cm Neck ROM: Full Loose/Missing/Broken Teeth: No Heart: RRR Lungs: CTA Assessment and Plan Final Anesthetic Review NPO: Yes ASA Class: III Final Preanesthetic Review: Meds/Allgs Chart Reviewed, Consent Obtained/Reviewed and Anes Risks/Benef Reviewed Patient Risk: Intermediate Procedure Risk: Low Anesthetic Plan Anesthetic Plan: GA Disposition: Standard PACU
[2021-07-25] VITALS (8 sets, daily range): BP systolic 106–137; BP diastolic 49–73; PULSE 49–65; RESP 12–18; TEMP 36–36.3; O2SAT 93–100
[2021-07-25] MEDS: Lactated Ringers 1,000 ML 100 ML IVCONT (06:31)
--- NOTE | 2021-07-25 07:22 | MHC.SHP ---
Pre-Procedural Eval Section A Date of Service: 07/25/21 Section B Chief Complaint: Malignant Neoplasm of Bladder Details of Present Illness: completed induction gemcitabine - herre for 3 month cysto/biopsy Relevant Social History: None Present Medications: see Short Stay Collaborative assessment Medical History: Significant History History of Previous Operations: Relevant previous surgery/procedure and date(s) Allergies: Allergies Allergy/AdvReac Type Severity Reaction Status Date / Time NSAIDS (Non-Steroidal Allergy Severe caused Verified 07/20/21 10:52 Anti-Inflamma peptic ulcer ciprofloxacin [From Cipro] Allergy Intermediate Rash Verified 07/20/21 10:52 nitrofurantoin Allergy Intermediate Rash Verified 07/20/21 10:52 aspirin [ASA] AdvReac Severe caused Verified 07/20/21 10:52 peptic ulcer sulfamethoxazole AdvReac Intermediate Joint Pain Verified 07/20/21 10:52 [From Bactrim] trimethoprim [From Bactrim] AdvReac Intermediate Joint Pain Verified 07/20/21 10:52 Review of Systems Sugical H&P ROS: Negative: Constitution, Cardiovascular, Respiratory, Neurological, Psychiatric, Hem-Onc, Allergic/Immunologic, Gastrointestinal, Genitourinary, Musculoskeletal, Integumentary, Endocrine and Eyes/Ears/Nose/Throat Exam Surgical H&P Exam: Normal: HEENT, Normal: Heart, Normal: Lungs, Normal: Extremities, Normal: Abdomen, Normal: Skin and Normal: Neurological Plan Diagnosis/Plan: Unchanged (cysto bioposy bladder) I have reviewed the history and physical and performed a pertinent physical examination on my patient. No changes have occurred unless specified.
[2021-07-25] MEDS: levoFLOXacin 500 MG TABLET PO (07:24)
--- NOTE | 2021-07-25 08:01 | P.OP_ITS ---
Operative Note Operative Note Date of Service: 07/25/21 Narrative: PreOperative Diagnosis: Bladder cancer Post Operative Diagnosis: Bladder cancer Procedure: Cystoscopy bladder biopsy Surgeon: Dr Mp Bashir Anesthesia: Sedation Indications for procedure: Prostate cancer treated with external beam radiation approximately 15 years ago. Presented with microscopic hematuria found to have bladder cancer February 2021. Presents today for 3 month cysto, biopsy having had 6 weeks of induction gemcitabine. Procedure: After informed consent was verified the patient was brought to the operating room and placed in a supine position. Anesthesia was administered per protocol. Patient was placed in modified dorsal lithotomy position and prepped and draped in a sterile sterile fashion. Safety pause time-out was performed. Antibiotics have been given. Twenty-two Persian cystoscope performed. Bladder showed relatively good healing of initial resection site on left sidewall. There was some debris at the resection site. Biopsies were taken from the posterior wall. These were fulgurated as was the prior resection site. Rocha catheter placed as prior retention after procedures. Will be removed in 3-5 days. He tolerated the procedure well was extubated in the operating room transferred in stable condition to the recovery area Pathology: bladder biopsy Drains: rocha
[2021-07-25] MEDS: Phenazopyridine HCL 100 MG TABLET PO (08:51)
== END 2021-07-25 09:43 | disposition home or self-care (01) ==
PROVIDERS: PCP Internal Medicine; Visit Provider Urology
PROC: (CPT 52204; principal; 2021-07-25 07:30)
DX: C67.4 Malignant neoplasm of posterior wall of bladder (principal); I10 Essential (primary) hypertension; Z85.46 Personal history of malignant neoplasm of prostate; Z92.3 Personal history of irradiation
CPT/HCPCS: 52204; 88305; J1100; J2405; J3010

== ENCOUNTER → 2021-07-28 09:03 | Outpatient (BNVA) | payer MEDICARE, SELFPAY | PROVIDERS: PCP Internal Medicine | DX: C61 Malignant neoplasm of prostate (principal) | CPT/HCPCS: 51700; 51798 ==

== ENCOUNTER → 2021-11-01 09:43 | Outpatient (BNVA) | payer MEDICARE, SELFPAY | PROVIDERS: Visit Provider Urology | DX: Z13.89 Encounter for screening for other disorder (principal) | CPT/HCPCS: Q3014 ==

== ENCOUNTER 2021-11-21 10:57 | Day surgery (SDC) | payer MEDICARE, SELFPAY ==
[2021-10-31 11:06] VITALS: BMI 26.3
--- NOTE | 2021-11-18 13:25 | HO.ANESPROP2 ---
Documented by User: Betty Peterson NP 11/18/21 13:45 [facility] Active Problems Active Problems: All Active Problems (Updated 10/31/21 @ 11:09 by Lexi Garvin RN) Prostate cancer (Acute) Radiation cystitis (Acute) Hematuria due to cystitis (Acute) Bladder cancer (Acute) Past Medical History Medical History (Updated 10/31/21 @ 11:09 by Lexi Garvin RN) COVID-19 COVID-19 vaccine series completed Elevated cholesterol Erectile dysfunction after radical prostatectomy GERD (gastroesophageal reflux disease) Gross hematuria HTN (hypertension) Hx of radiation therapy Peptic ulcer Prostate cancer Radiation cystitis Urinary bladder incontinence Family History Family history of problems with anesthesia: No Surgical History Surgical History (Updated 10/31/21 @ 10:55 by Lexi Garvin RN) H/O colonoscopy History of bladder surgery Hx of appendectomy Hx of cystoscopy Hx of radical prostatectomy History of Problems with Anesthesia: No Social History Social History Are you a primary manager urgent care to a significant other at home: No Do you presently have visiting nurse or other home services: No Patient Tobacco Use Status: Former Tobacco user Quit Date: 1969 Tobacco use type: Cigarette Use of substances other than those prescribed or required for medical reasons: No Have you been hit, kicked, punched, or otherwise hurt by someone within the past year? If so, by whom?: No Advance Directives: Yes Advance Directives Information Provided: Yes Advance Directives on File: Yes Advance Directives Date on File: 04/11/21 Recently lost weight without trying: No Eating poorly because of decreased appetite: No Nutrition Risks: Surgical patient >75years Poor oral hygiene: No (wearsnpartial) Meds Allergies Allergy/AdvReac Type Severity Reaction Status Date / Time NSAIDS (Non-Steroidal Allergy Severe caused Verified 07/20/21 10:52 Anti-Inflamma peptic ulcer ciprofloxacin [From Cipro] Allergy Intermediate Rash Verified 07/20/21 10:52 nitrofurantoin Allergy Intermediate Rash Verified 07/20/21 10:52 aspirin [ASA] AdvReac Severe caused Verified 07/20/21 10:52 peptic ulcer sulfamethoxazole AdvReac Intermediate Joint Pain Verified 07/20/21 10:52 [From Bactrim] trimethoprim [From Bactrim] AdvReac Intermediate Joint Pain Verified 07/20/21 10:52 Home Medications Medication Instructions Recorded Confirmed Last Taken Type albuterol sulfate 90 mcg/actuation 2 puff PO QID PRN 12/08/20 10/31/21 Unknown History aerosol inhaler amlodipine 10 mg-benazepril 40 mg 1 cap PO DAILY 12/08/20 10/31/21 07/25/21 History capsule atorvastatin 10 mg tablet 10 mg PO BEDTIME 12/08/20 10/31/21 Unknown History budesonide-formoterol HFA 80 2 puff PO BID 12/08/20 10/31/21 04/11/21 05:00 History mcg-4.5 mcg/actuation aerosol inhaler carvedilol 6.25 mg tablet 6.25 mg PO BID 12/08/20 10/31/21 07/25/21 History cetirizine 10 mg tablet 10 mg PO DAILY 12/08/20 10/31/21 04/11/21 05:00 History fluticasone propionate 50 1 spray INTRANASAL DAILY 12/08/20 10/31/21 Unknown History mcg/actuation nasal spray,suspension inhalational spacing device #1 ea 12/08/20 Unknown History omeprazole magnesium 20 mg 20 mg PO DAILY PRN 04/06/21 10/31/21 Unknown History tablet,delayed release (Prilosec OTC) tranexamic acid 650 mg tablet 650 mg PO DAILY 10/31/21 10/31/21 Unknown History Exam Exam Date and Time: November 18, 2021 1325 Height,Weight and Vital Signs: Height 6 ft 2 in Weight 92.986 kg Pertinent Lab Results Pertinent Lab Results: Laboratory Tests 07/11/21 07/11/21 09:40 09:40 WBC 7.0 Hgb 14.7 Hct 43.7 Plt Count 249 Sodium 140 Potassium 4.8 Chloride 108 Carbon Dioxide 26 BUN 22 H Creatinine 1.05 Assessment and Plan Assessment Anesthesia Assessment: Chart Reviewed Final Anesthetic Review Family History of Problems with Anesthesia: No History of Problems with Anesthesia: No Documented by User: Elizabeth Johns MD 11/21/21 11:39 PMFSH Past Medical History Medical History (Updated 10/31/21 @ 11:09 by eLxi Garvin RN) COVID-19 COVID-19 vaccine series completed Elevated cholesterol Erectile dysfunction after radical prostatectomy GERD (gastroesophageal reflux disease) Gross hematuria HTN (hypertension) Hx of radiation therapy Peptic ulcer Prostate cancer Radiation cystitis Urinary bladder incontinence Surgical History Surgical History (Updated 10/31/21 @ 10:55 by Lexi Garvin RN) H/O colonoscopy History of bladder surgery Hx of appendectomy Hx of cystoscopy Hx of radical prostatectomy Social History Social History Are you a primary manager urgent care to a significant other at home: No Do you presently have visiting nurse or other home services: No Patient Tobacco Use Status: Former Tobacco user Quit Date: 1969 Tobacco use type: Cigarette Use of substances other than those prescribed or required for medical reasons: No Have you been hit, kicked, punched, or otherwise hurt by someone within the past year? If so, by whom?: No Advance Directives: Yes Advance Directives Information Provided: Yes Advance Directives on File: Yes Advance Directives Date on File: 04/11/21 Recently lost weight without trying: No Eating poorly because of decreased appetite: No Nutrition Risks: Surgical patient >75years Poor oral hygiene: No (wearsnpartial) Meds Allergies Allergy/AdvReac Type Severity Reaction Status Date / Time NSAIDS (Non-Steroidal Allergy Severe caused Verified 07/20/21 10:52 Anti-Inflamma peptic ulcer ciprofloxacin [From Cipro] Allergy Intermediate Rash Verified 07/20/21 10:52 nitrofurantoin Allergy Intermediate Rash Verified 07/20/21 10:52 aspirin [ASA] AdvReac Severe caused Verified 07/20/21 10:52 peptic ulcer sulfamethoxazole AdvReac Intermediate Joint Pain Verified 07/20/21 10:52 [From Bactrim] trimethoprim [From Bactrim] AdvReac Intermediate Joint Pain Verified 07/20/21 10:52 Home Medications Medication Instructions Recorded Confirmed Last Taken Type albuterol sulfate 90 mcg/actuation 2 puff PO QID PRN 12/08/20 10/31/21 Unknown History aerosol inhaler amlodipine 10 mg-benazepril 40 mg 1 cap PO DAILY 12/08/20 10/31/21 07/25/21 History capsule atorvastatin 10 mg tablet 10 mg PO BEDTIME 12/08/20 10/31/21 Unknown History budesonide-formoterol HFA 80 2 puff PO BID 12/08/20 10/31/21 04/11/21 05:00 History mcg-4.5 mcg/actuation aerosol inhaler carvedilol 6.25 mg tablet 6.25 mg PO BID 12/08/20 10/31/21 07/25/21 History cetirizine 10 mg tablet 10 mg PO DAILY 12/08/20 10/31/21 04/11/21 05:00 History fluticasone propionate 50 1 spray INTRANASAL DAILY 12/08/20 10/31/21 Unknown History mcg/actuation nasal spray,suspension inhalational spacing device #1 ea 12/08/20 Unknown History omeprazole magnesium 20 mg 20 mg PO DAILY PRN 04/06/21 10/31/21 Unknown History tablet,delayed release (Prilosec OTC) tranexamic acid 650 mg tablet 650 mg PO DAILY 10/31/21 10/31/21 Unknown History Exam Airway Mallampati Class: II TM Dist: >3cm Neck ROM: Full Partial: Upper Heart: rrr Lungs: cta Assessment and Plan Final Anesthetic Review NPO: Yes ASA Class: III Final Preanesthetic Review: No Changes in Pt Med Stat, Meds/Allgs Chart Reviewed and Consent Obtained/Reviewed Patient Risk: Intermediate Procedure Risk: Intermediate Anesthetic Plan Anesthetic Plan: GA Disposition: Standard PACU
[2021-11-21] VITALS (9 sets, daily range): BP systolic 108–159; BP diastolic 68–84; PULSE 63–66; RESP 16–18; TEMP 36.6–36.8; O2SAT 94–99
[2021-11-21] MEDS: Lactated Ringers 1,000 ML 100 ML IVCONT (12:20)
--- NOTE | 2021-11-21 13:23 | MHC.SHP ---
Pre-Procedural Eval Section A Date of Service: 11/21/21 The patient is an INPATIENT: No Changes since office visit: No Cold of Flu in the past 2 weeks, No New Medical Problems, No Changes in Medication and No Patient answered all questions Section B Chief Complaint: malignant neoplasm of bladder Details of Present Illness: Urgency and frequency from radiation cystitis. Status post hyperbaric chamber. Here for trial of Botox Relevant Family History (Specify if Yes): No Relevant Social History: None Present Medications: see Short Stay Collaborative assessment Medical History: Significant History History of Previous Operations: Relevant previous surgery/procedure and date(s) Allergies: Allergies Allergy/AdvReac Type Severity Reaction Status Date / Time NSAIDS (Non-Steroidal Allergy Severe caused Verified 07/20/21 10:52 Anti-Inflamma peptic ulcer ciprofloxacin [From Cipro] Allergy Intermediate Rash Verified 07/20/21 10:52 nitrofurantoin Allergy Intermediate Rash Verified 07/20/21 10:52 aspirin [ASA] AdvReac Severe caused Verified 07/20/21 10:52 peptic ulcer sulfamethoxazole AdvReac Intermediate Joint Pain Verified 07/20/21 10:52 [From Bactrim] trimethoprim [From Bactrim] AdvReac Intermediate Joint Pain Verified 07/20/21 10:52 Review of Systems Sugical H&P ROS: Negative: Constitution, Cardiovascular, Respiratory, Neurological, Psychiatric, Hem-Onc, Allergic/Immunologic, Gastrointestinal, Genitourinary, Musculoskeletal, Integumentary, Endocrine and Eyes/Ears/Nose/Throat Exam Surgical H&P Exam: Normal: HEENT, Normal: Heart, Normal: Lungs, Normal: Extremities, Normal: Abdomen, Normal: Skin and Normal: Neurological Plan Diagnosis/Plan: Unchanged (Cysto to, bladder Botox) I have reviewed the history and physical and performed a pertinent physical examination on my patient. No changes have occurred unless specified.
--- NOTE | 2021-11-21 14:18 | P.OP_ITS ---
Operative Note Operative Note Date of Service: 11/21/21 Narrative: PreOperative Diagnosis: Overactive bladder with failure of medications in background of radiation cystitis Post Operative Diagnosis: Overactive bladder with failure of medications dionna kground of radiation cystitis Procedure: Fulguration of abnormal bladder mucosa Cystoscopy with injection 100 units Botox intra detrusor muscle Surgeon: Dr Mp Bashir Anesthesia: Sedation Indications for procedure: 81-year-old male. Radiation cystitis. Persistent urgency frequency. Undergone hyperbaric oxygen for persistent hematuria. Here for cystoscopy, bladder biopsy, fulguration and Botox injection Procedure: After informed consent was verified the patient was brought to the operating room and placed in a supine position. Anesthesia was administered per protocol. Cystoscopy performed with 22 Vietnamese cystoscope. Bladder was emptied of urine. Bladder was refilled. Mucosal changes on lower left bladder lining. Fulguration performed. Changes appearing around ureteric orifice on left side. Using 100 units of Botox mixed in 10 cc of normal saline injections were placed at the back wall of the bladder. 0.5cc placed at each injection site. Injections were placed in a grid 5 across and for high. Injections were placed from the inferior to superior position. Trabeculations on the bladder wall with targeted for each injection site. Procedure was tolerated well. Patient was extubated and transferred in stable condition to the recovery area. Will need treatment with gemcitabine installation is a as outpatient Pathology: None Drains: None
== END 2021-11-21 16:13 | disposition home or self-care (01) ==
PROVIDERS: Visit Provider Urology
PROC: (CPT 52287; principal; 2021-11-21 12:40)
DX: C67.9 Malignant neoplasm of bladder, unspecified (principal); N30.40 Irradiation cystitis without hematuria; R39.15 Urgency of urination; R35.0 Frequency of micturition; I10 Essential (primary) hypertension; Z92.3 Personal history of irradiation; Z85.46 Personal history of malignant neoplasm of prostate; Z87.891 Personal history of nicotine dependence; Z88.2 Allergy status to sulfonamides; Z88.8 Allergy status to other drugs, medicaments and biological substances
CPT/HCPCS: 52287; J0585; J0690; J2405; J3010

== ENCOUNTER → 2021-11-29 10:05 | Outpatient (BNVA) | payer MEDICARE, SELFPAY | PROVIDERS: PCP Internal Medicine; Visit Provider Urology | DX: C61 Malignant neoplasm of prostate (principal); C67.9 Malignant neoplasm of bladder, unspecified; N30.40 Irradiation cystitis without hematuria; R39.15 Urgency of urination | CPT/HCPCS: 51700; 99212 ==

== ENCOUNTER 2021-12-02 08:41 | Outpatient (REF) | payer MEDICARE, SELFPAY ==
[2021-12-02 10:21] LABS: Prostate Specific Antigen < 0.05 ng/mL (<0.05-4.0)
== END 2021-12-02 08:42 | disposition home or self-care (01) ==
LOC: HO.LAB 08:41
PROVIDERS: Visit Provider Urology
DX: C61 Malignant neoplasm of prostate (principal); N40.1 Benign prostatic hyperplasia with lower urinary tract symptoms; N13.8 Other obstructive and reflux uropathy; Z12.5 Encounter for screening for malignant neoplasm of prostate
CPT/HCPCS: 36415; 84153

== ENCOUNTER 2021-12-06 11:57 | Outpatient (REF) | payer MEDICARE, SELFPAY | END 2021-12-06 11:58 | disposition home or self-care (01) | LOC: HO.LAB 11:57 | PROVIDERS: Visit Provider Urology | DX: Z13.89 Encounter for screening for other disorder (principal) ==

== ENCOUNTER 2021-12-07 09:16 | Outpatient (REF) | payer MEDICARE, SELFPAY ==
[2021-12-07 09:29] LABS: Appearance Urine HAZY; Color Urine YELLOW; Glucose Urine UA NEG (NEG); Leukocyte Esterase Urine 1+ (NEG); Nitrite Urine NEG (NEG); Specific Gravity - Urine 1.015 (1.005-1.025); Urine Blood 3+ (NEG); Urine Ketones NEG (NEG); Urine Protein TRACE MG/DL (NEG-TRACE)
[2021-12-07 09:38] LABS: Bacteria Urine 1+ /LPF; WBC Urine 50-75 /HPF (0-4)
== END 2021-12-07 09:17 | disposition home or self-care (01) ==
LOC: HO.LNP 09:16
PROVIDERS: Visit Provider Urology
DX: R39.15 Urgency of urination (principal); B96.1 Klebsiella pneumoniae [K. pneumoniae] as the cause of diseases classified elsewhere
CPT/HCPCS: 81001; 87086; 87088; 87186

== ENCOUNTER 2021-12-09 08:21 | Outpatient (REF) | payer MEDICARE, SELFPAY ==
[2021-12-09 09:41] LABS: Blood Urea Nitrogen 26 mg/dL (9-16); Estimated Glomerular Filt Rate 52
== END 2021-12-09 08:22 | disposition home or self-care (01) ==
LOC: HO.LAB 08:21
PROVIDERS: PCP Internal Medicine; Visit Provider Urology
DX: C67.9 Malignant neoplasm of bladder, unspecified (principal); R39.15 Urgency of urination
CPT/HCPCS: 36415; 82565; 84520

== ENCOUNTER 2021-12-21 08:39 | Outpatient (REF) | payer MEDICARE, SELFPAY ==
--- NOTE | ~2021-12-21 | CT_ITS ---
EXAMINATION: CT ABDOMEN AND PELVIS WITHOUT AND WITH CONTRAST CLINICAL INFORMATION: Gross hematuria. History of prostate cancer. COMPARISON: None. TECHNIQUE: Noncontrast CT of the abdomen and pelvis is performed followed by split bolus contrast-enhanced images using 85 mL Omnipaque 350 contrast.? Postcontrast imaging is performed during the combined nephrogram and excretion phase. Sagittal and coronal reformatted images were obtained on the technologist's workstation for both the precontrast and postcontrast phases. This CT examination was performed using dose optimization techniques as appropriate, variously including the following: *Automated exposure control *Adjustment of mA and/or kV according to patient size (this includes techniques or standardized protocols for targeted exams where dose is matched to indication/reason for exam; i.e. extremities or head) *Use of iterative reconstruction technique DLP: 925 mGy-cm FINDINGS: LUNG BASES: The visualized lung bases are unremarkable. LIVER, GALLBLADDER, AND BILIARY TREE: The liver is normal in size, shape, and attenuation. No focal hepatic lesion or biliary ductal dilatation is present. The gallbladder is unremarkable with no evidence of radiopaque gallstones, gallbladder wall thickening, or obvious pericholecystic inflammatory changes. PANCREAS: Unremarkable. SPLEEN: Unremarkable. ADRENAL GLANDS: Unremarkable. KIDNEYS AND URETERS: There is mild left hydronephrosis. There is delayed excretion in the left renal collecting system. There is a partially duplicated left renal collecting system. The left ureter is dilated down to the bladder. There is a partially duplicated right renal collecting system. There is no right hydronephrosis. There are small low-attenuation renal lesions suggestive of small cysts. Largest measures 8 mm in the lower pole. No imaging follow-up needed. There is good opacification of the right ureter which is normal-appearing. BLADDER: The bladder is not optimally distended. There is diffuse bladder wall thickening. This is greatest along the left side of the bladder near the left UVJ insertion. There also appears to be nodular areas of slight enhancement along the bladder and stranding of the perivesicular fat anterior to the bladder. Whether this represents a primary bladder cancer, metastatic disease from patient's known prostate cancer or post radiation changes to the bladder are uncertain. GASTROINTESTINAL TRACT: There is diverticulosis of the colon. ABDOMINAL WALL: There is a small umbilical hernia containing fat. LYMPH NODES: Normal. VASCULAR: Unremarkable. PELVIC VISCERA: The prostate gland has been removed. OSSEUS STRUCTURES: There are degenerative changes of the spine. No focal lesion is seen. CT/CT urogram IMPRESSION: Left hydronephrosis. Delayed excretion of contrast into the left renal collecting system compared to the right and dilated left ureter down to the bladder. The bladder is not optimally distended but there is a irregular bladder wall thickening and enhancement. There is some stranding of the perivesicular fat anterior to the bladder. Differential would include bladder cancer, metastatic disease to the bladder from the patient's prostate cancer and post radiation changes. Partially duplicated bilateral renal collecting systems. Small right renal cysts. Mild diverticulosis of the colon.
[2021-12-21] MEDS: iohexoL 350 MG/ML 100 ML INFUS..BTL IV (09:49)
== END 2021-12-21 08:40 | disposition home or self-care (01) ==
LOC: HO.CT 08:39
PROVIDERS: Visit Provider Urology
DX: R31.0 Gross hematuria (principal); C67.9 Malignant neoplasm of bladder, unspecified
CPT/HCPCS: 74178; Q9967

== ENCOUNTER 2021-12-30 10:49 | Outpatient (REF) | payer MEDICARE, SELFPAY ==
[2021-12-30 10:55] LABS: Appearance Urine HAZY; Color Urine YELLOW; Glucose Urine UA NEG (NEG); Leukocyte Esterase Urine TRACE (NEG); Nitrite Urine NEG (NEG); Urine Blood 2+ (NEG); Urine Ketones NEG (NEG); Urine Protein TRACE MG/DL (NEG-TRACE)
[2021-12-30 11:03] LABS: Squamous Epithelial Cell Urine TRACE /LPF
== END 2021-12-30 10:50 | disposition home or self-care (01) ==
LOC: HO.LNP 10:49
PROVIDERS: Visit Provider Urology
DX: C67.9 Malignant neoplasm of bladder, unspecified (principal)
CPT/HCPCS: 81001

== ENCOUNTER 2022-01-24 14:50 | Outpatient (REF) | payer MEDICARE, SELFPAY | END 2022-01-24 14:51 | disposition home or self-care (01) | LOC: HO.LAB 14:50 | PROVIDERS: PCP Internal Medicine; Visit Provider Urology | DX: C61 Malignant neoplasm of prostate (principal); C67.9 Malignant neoplasm of bladder, unspecified; N39.0 Urinary tract infection, site not specified | CPT/HCPCS: 52000; 87086; 87088; 87186; 99212 ==

== ENCOUNTER 2022-02-18 01:11 | Emergency (ER) | payer MEDICARE, SELFPAY ==
[2022-02-18 01:42] VITALS: BP 157/98; PULSE 85; RESP 16; TEMP 35.9; O2SAT 95; BMI 27.1
--- NOTE | 2022-02-18 03:05 | PC.NURSE ---
PT bladder scanned to find 0 mL of urine in the bladder. PT stated that he urinated about one hour ago with what appeared to be a blood clot in the toilet bowl.
[2022-02-18 03:08] LABS: Basophils Percent Auto 0.3 % (0-2); Eosinophils Absolute Auto 0.4 X10*3/uL (0.0-0.4); Eosinophils Percent Auto 2.6 % (0-4); Hematocrit 50.4 % (42.0-52.0); Hemoglobin 16.6 g/dl (14.0-18.0); Imm Gran Abs Auto 0.22 X10*3/uL (0.00-0.03); Imm Gran Pct Auto 1.5 % (0.0-0.4); Lymphocytes Absolute Auto 1.6 X10*3/uL (1.2-4.9); Lymphocytes Percent Auto 10.9 % (20-40); MANUAL DIFF FLAG NO; Mean Corpuscular HGB Conc 32.9 g/dl (31.0-36.0); Mean Corpuscular Hemoglobin 30.7 pg (27.0-33.0); Mean Corpuscular Volume 93.3 fL (80.0-98.0); Monocytes Absolute Auto 1.4 X10*3/uL (0.1-1.2); Monocytes Percent Auto 9.8 % (2-11); Neutrophils Absolute Auto 10.8 x10*3/uL (2.0-8.3); Neutrophils Percent Auto 74.9 % (45-73); Platelet Count 308 X10*3/uL (160-400); Red Cell Distribution Width 14.6 % (11.0-16.0); White Blood Count 14.4 X10*3/uL (4.8-10.8)
--- NOTE | 2022-02-18 03:10 | ED_ITS ---
HPI - Male Genitourinary General Chief complaint: Urogenital-Male Stated complaint: possible blood clot, unable to urinate Time Seen by Provider: 02/18/22 03:03 Source: patient Mode of arrival: ambulatory Limitations: no limitations History of Present Illness HPI Narrative: Patient comes to the emergency room complaining of intermittent urinary retention. Patient states he has had this happen multiple times in the past. This afternoon, patient noticed blood clots. Patient is known to have bladder cancer and prostate cancer. Patient states that the urinary retention episodes lasted for about 4 hours but eventually he was able to urinate. Patient denies dysuria Related Data Home Medications Medication Instructions Recorded Confirmed albuterol sulfate 90 mcg/actuation 2 puff PO QID PRN 12/08/20 10/31/21 aerosol inhaler amlodipine 10 mg-benazepril 40 mg 1 cap PO DAILY 12/08/20 10/31/21 capsule atorvastatin 10 mg tablet 10 mg PO BEDTIME 12/08/20 10/31/21 budesonide-formoterol HFA 80 2 puff PO BID 12/08/20 10/31/21 mcg-4.5 mcg/actuation aerosol inhaler carvedilol 6.25 mg tablet 6.25 mg PO BID 12/08/20 10/31/21 cetirizine 10 mg tablet 10 mg PO DAILY 12/08/20 10/31/21 fluticasone propionate 50 1 spray INTRANASAL DAILY 12/08/20 10/31/21 mcg/actuation nasal spray,suspension inhalational spacing device #1 ea 12/08/20 omeprazole magnesium 20 mg 20 mg PO DAILY PRN 04/06/21 10/31/21 tablet,delayed release (Prilosec OTC) tranexamic acid 650 mg tablet 650 mg PO DAILY 10/31/21 10/31/21 vitamin E (dl, acetate) 450 mg 450 mg PO DAILY 01/24/22 (1,000 unit) capsule Previous Rx's Medication Instructions Recorded pentoxifylline 400 mg 400 mg PO BID 30 Days #60 tab 11/29/21 tablet,extended release cefuroxime axetil 250 mg tablet 250 mg PO BID 10 Days #20 tab 12/20/21 amoxicillin 875 mg-potassium 1 tab PO BID 5 Days #10 tab 01/05/22 clavulanate 125 mg tablet levofloxacin 500 mg tablet 500 mg PO DAILY 5 Days #5 tab 01/24/22 fosfomycin tromethamine 3 gram 1 packet PO Q3D #2 ea 02/14/22 oral packet cefuroxime axetil 500 mg tablet 500 mg PO BID #14 tab 02/18/22 tamsulosin 0.4 mg capsule (Flomax) 0.4 mg PO BEDTIME #5 cap 02/18/22 Allergies Allergy/AdvReac Type Severity Reaction Status Date / Time NSAIDS (Non-Steroidal Allergy Severe caused Verified 02/18/22 01:44 Anti-Inflamma peptic ulcer ciprofloxacin [From Cipro] Allergy Intermediate Rash Verified 02/18/22 01:44 nitrofurantoin Allergy Intermediate Rash Verified 02/18/22 01:44 aspirin [ASA] AdvReac Severe caused Verified 02/18/22 01:44 peptic ulcer sulfamethoxazole AdvReac Intermediate Joint Pain Verified 02/18/22 01:44 [From Bactrim] trimethoprim [From Bactrim] AdvReac Intermediate Joint Pain Verified 02/18/22 01:44 Review of Systems Review of Systems: Constitutional : No Weight loss, No Fever, No Chills, No Night Sweats, No Fatigue, No Malaise ENT/Mouth : No Hearing loss, No Ear Pain, No Nasal Congestion, No Sinus Pain, No Hoarseness, No sore throat, No Rhinorrhea, No Swallowing Difficulty Eyes: No Eye Pain, No Swelling, No Redness, No Foreign Body, No Discharge, No Vision Changes Cardiovascular : No Chest Pain, No SOB, No Dyspnea on Exertion, No Orthopnea, No Edema, No Palpitations Respiratory : No Cough, No Sputum, No Wheezing, No Smoke Exposure, No Dyspnea Gastrointestinal : No Nausea, No Vomiting, No Diarrhea, No Constipation, No abdominal Pain, No Hematochezia, No Melena Genitourinary : Complaining of urinary retention intermittently, hematuria, no dysuria Musculoskeletal : No joint pain, No Myalgias, No Joint Swelling Skin : No Skin Lesions, No rash Neuro : No Weakness, No Numbness, No Paresthesias, No Loss of Consciousness, No Dizziness, No Headache Psych : No Anxiety/Panic, No Depression, No SI/HI/AH/VH, No Social Issues, Heme/Lymph: No Bruising, No Bleeding,No Lymphadenopathy Endocrine : No Polyuria, No Polydipsia, No Temperature Intolerance PMFSH Past Medical History Medical History COVID-19 COVID-19 vaccine series completed Elevated cholesterol Erectile dysfunction after radical prostatectomy GERD (gastroesophageal reflux disease) Gross hematuria HTN (hypertension) Hx of radiation therapy Peptic ulcer Radiation cystitis Urinary bladder incontinence Surgical History H/O colonoscopy History of bladder surgery Hx of appendectomy Hx of cystoscopy Hx of radical prostatectomy Social History Social History Are you a primary customer care assistant to a significant other at home: No Do you presently have visiting nurse or other home services: No Patient Tobacco Use Status: Former Tobacco user Quit Date: 50 YEARS AGO Tobacco use type: Cigarette Advance Directives: Yes Advance Directives on File: Yes Advance Directives Date on File: 04/11/21 Physical Exam Vital Signs: Vital Signs: Last Vital Signs Temp 96.7 F L 02/18/22 01:42 Pulse 85 02/18/22 01:42 Resp 16 02/18/22 01:42 BP 157/98 H 02/18/22 01:42 Pulse Ox 95 02/18/22 01:42 BMI result Body Mass Index 27.1 Const: Other: Appearance: Alert. Oriented X3. No acute distress. Eyes: Pupils equal, round and reactive to light. ENT: Pharynx normal. Neck: Normal inspection. Neck supple. No lymph nodes noted. No crepitus CVS: Normal heart rate and rhythm. Pulses normal. Normal S1 and S2 Respiratory: No respiratory distress. Breath sounds normal. No Wheezing. No rales Abdomen: Soft and nontender. No rigidity. No distention. Skin: Skin warm and dry. Normal skin color. Normal skin turgor. Extremities: No lower extremity edema. No Lacerations. No Rash Neuro: Oriented X 3. No motor deficit. No sensory deficit. Moving all extremities. No slurred speech. CN 2 through 12 grossly intact Psych: calm, cooperative, normal affect Course Course Course Narrative: Bladder scan showed 0 mL of urine. Patient states that he was just able to urinate. I discussed with the patient that we can send him home and he can follow-up if the urinary retention reoccurs. Or the 2nd option is to have him use a Hardin catheter for couple of days and follow-up with Urology. I discussed with the patient that he has had multiple episodes of urinary retention, likely to reoccur. Patient agrees with plan, we will insert a Hardin catheter and have him follow-up with Dr. Bashir in 2-3 days. Patient was given 1 dose of Flomax in the emergency room. Patient's urinalysis is positive, patient received 1 g of ceftriaxone IM. Patient has no fever, normal blood pressure, sepsis is not suspected. MDM - Male Genitourinary Lab Data Result diagrams: 02/18/22 03:02 02/18/22 03:02 Labs: Lab Results 02/18/22 02/18/22 02/18/22 Range/Units 03:02 03:02 04:27 WBC 14.4 H (4.8-10.8) X10*3/uL RBC 5.40 (4.60-5.80) X10*6/uL Hgb 16.6 (14.0-18.0) g/dl Hct 50.4 (42.0-52.0) % MCV 93.3 (80.0-98.0) fL MCH 30.7 (27.0-33.0) pg MCHC 32.9 (31.0-36.0) g/dl RDW 14.6 (11.0-16.0) % Plt Count 308 (160-400) X10*3/uL MPV 10.0 (9.4-12.4) fL Immature Gran % (Auto) 1.5 H (0.0-0.4) % Neut % (Auto) 74.9 H (45-73) % Lymph % (Auto) 10.9 L (20-40) % [place] % (Auto) 9.8 (2-11) % Eos % (Auto) 2.6 (0-4) % Baso % (Auto) 0.3 (0-2) % Lymph # (Auto) 1.6 (1.2-4.9) X10*3/uL [place] # (Auto) 1.4 H (0.1-1.2) X10*3/uL Eos # (Auto) 0.4 (0.0-0.4) X10*3/uL Baso # (Auto) 0.0 (0.0-0.2) X10*3/uL Abs Immat Gran (auto) 0.22 H (0.00-0.03) X10*3/uL Absolute Neuts (auto) 10.8 H (2.0-8.3) x10*3/uL Absolute Nucleated RBC 0.000 (0.0-0.012) X10*3/uL Nucleated RBC % (auto) 0.0 (0.0-0.2) /100WBC Sodium 137 (135-145) mmol/L Potassium 4.4 (3.3-5.1) mmol/L Chloride 103 (96-108) mmol/L Carbon Dioxide 25 (22-29) mmol/L Anion Gap 13 (12-20) BUN 37 H (9-16) mg/dL Creatinine 1.27 (0.5-1.4) mg/dL Estim Creat Clear Calc 54.8 Estimated GFR 55 Random Glucose 104 (60-115) mg/dL Calcium 9.3 (8.4-10.2) mg/dL Total Bilirubin 1.2 H (0.0-1.0) mg/dL AST 33 (5-37) U/L ALT 90 H (0-40) U/L Alkaline Phosphatase 92 (39-117) U/L Total Protein 6.4 L (6.5-8.0) g/dL Albumin 3.7 (3.5-5.0) g/dL Urine Color YELLOW Urine Appearance HAZY Urine pH 6.0 (5.0-8.0) Ur Specific [place] 1.020 (1.005-1.025) Urine Protein TRACE (NEG-TRACE) MG/DL Urine Glucose (UA) NEG (NEG) MG/DL Urine Ketones NEG (NEG) MG/DL Urine Blood 3+ H (NEG) Urine Nitrite NEG (NEG) Ur Leukocyte Esterase TRACE H (NEG) Discharge Plan Discharge Clinical Impression: Acute urinary retention, Acute UTI Patient Disposition: Home, Self-Care Instructions: Urinary Retention in Men (ED) Additional Instructions: Please follow-up with your primary care physician tomorrow. If you have any worsening or new symptoms, please return to the emergency room or call 911 Prescriptions: New tamsulosin [Flomax] 0.4 mg capsule 0.4 mg PO BEDTIME Qty: 5 0RF cefuroxime axetil 500 mg tablet 500 mg PO BID Qty: 14 0RF No Action cefuroxime axetil 250 mg tablet 250 mg PO BID 10 Days Qty: 20 0RF amoxicillin-pot clavulanate 875-125 mg tablet 1 tab PO BID 5 Days Qty: 10 0RF fosfomycin tromethamine 3 gram packet 1 packet PO Q3D Qty: 2 0RF omeprazole magnesium [Prilosec OTC] 20 mg Tablet,Delayed Release (Dr/Ec) 20 mg PO DAILY PRN (Reason: Acid Reflux) 0RF tranexamic acid 650 mg tablet 650 mg PO DAILY 0RF amlodipine-benazepril 10-40 mg capsule 1 cap PO DAILY 0RF atorvastatin 10 mg tablet 10 mg PO BEDTIME 0RF carvedilol 6.25 mg tablet 6.25 mg PO BID 0RF fluticasone propionate 50 mcg/actuation spray,suspension 1 spray intranasal DAILY 0RF cetirizine 10 mg tablet 10 mg PO DAILY 0RF budesonide-formoterol 80-4.5 mcg/actuation HFA aerosol inhaler 2 puff PO BID 0RF albuterol sulfate 90 mcg/actuation HFA aerosol inhaler 2 puff PO QID PRN (Reason: dyspnea) 0RF (DME) inhalational spacing device Spacer See Rx Instructions ea .ROUTE DAILY Qty: 1 0RF Rx Instructions: As directed pentoxifylline 400 mg tablet extended release 400 mg PO BID 30 Days Qty: 60 1RF Rx Instructions: administer with meals vitamin E (dl, acetate) 450 mg (1,000 unit) capsule 450 mg PO DAILY 0RF levofloxacin 500 mg tablet 500 mg PO DAILY 5 Days Qty: 5 0RF Referrals: Mp Bashir MD [Physician] - 3 days
[2022-02-18 03:23] LABS: Alanine Aminotransferase 90 U/L (0-40); Albumin Level 3.7 g/dL (3.5-5.0); Alkaline Phosphatase 92 U/L (39-117); Anion Gap 13 (12-20); Aspartate Amino Transferase 33 U/L (5-37); Bilirubin Total 1.2 mg/dL (0.0-1.0); Blood Urea Nitrogen 37 mg/dL (9-16); Calcium 9.3 mg/dL (8.4-10.2); Carbon Dioxide 25 mmol/L (22-29); Chloride 103 mmol/L (96-108); Creatinine Clr Calc Pharmacy 54.8; Estimated Glomerular Filt Rate 55; Glucose Random 104 mg/dL (60-115); Potassium 4.4 mmol/L (3.3-5.1); Sodium 137 mmol/L (135-145); Total Protein 6.4 g/dL (6.5-8.0)
[2022-02-18] MEDS: Tamsulosin HCL 0.4 MG CAPSULE PO (03:55)
[2022-02-18 04:33] LABS: Appearance Urine HAZY; Color Urine YELLOW; Glucose Urine UA NEG (NEG); Leukocyte Esterase Urine TRACE (NEG); Nitrite Urine NEG (NEG); UACC Culture Trigger NO; Urine Blood 3+ (NEG); Urine Ketones NEG (NEG); Urine Protein TRACE MG/DL (NEG-TRACE)
[2022-02-18 04:50] LABS: Mucus Urine 1+ /LPF; RBC Urine 30-49 /HPF (0); Squamous Epithelial Cell Urine 1+ /LPF; WBC Urine 0-2 /HPF (0-4)
[2022-02-18] MEDS: cefTRIAXone sodium 1 GM, Lidocaine HCl 1 % MPF 2.1 ML IM (04:55)
== END 2022-02-18 05:02 | disposition home or self-care (01) ==
PROVIDERS: Emergency Provider Emergency Medicine
DX: N39.0 Urinary tract infection, site not specified (principal); R33.9 Retention of urine, unspecified; Z87.891 Personal history of nicotine dependence; Z79.899 Other long term (current) drug therapy
CPT/HCPCS: 36415; 80053; 81001; 85025; 96372; 99283; 99284; J0696

== ENCOUNTER 2022-02-27 11:52 | Day surgery (SDC) | payer MEDICARE, SELFPAY ==
[2022-02-22 10:00] VITALS: BMI 26.3
--- NOTE | 2022-02-24 11:00 | HO.ANESPROP2 ---
Documented by User: Betty Peterson NP 02/24/22 11:03 HPI - Anesthesia Eval Consult details Narrative: 81yo M for Cysto TUR Bladder Tumor with Gemcitabine s/p cysto, bladder bx 10/2021 with GA-LMA 5 PMFSH Active Problems Active Problems: All Active Problems (Updated 02/19/22 @ 00:02 by Background Daemon) Prostate cancer (Acute) Radiation cystitis (Acute) Hematuria due to cystitis (Acute) Bladder cancer (Acute) Urinary urgency (Acute) Chronic UTI (urinary tract infection) (Acute) Past Medical History Medical History (Updated 02/19/22 @ 00:02 by Background Daemon) COVID-19 COVID-19 vaccine series completed Elevated cholesterol Erectile dysfunction after radical prostatectomy GERD (gastroesophageal reflux disease) Gross hematuria HTN (hypertension) Hx of radiation therapy Peptic ulcer Radiation cystitis Urinary bladder incontinence Family History Family history of problems with anesthesia: No Surgical History Surgical History (Updated 02/22/22 @ 09:57 by Lexi Garvin RN) H/O colonoscopy History of bladder surgery Hx of appendectomy Hx of cystoscopy Hx of cystoscopy Hx of radical prostatectomy History of Problems with Anesthesia: No Social History Social History Are you a primary child daycare worker to a significant other at home: No Do you presently have visiting nurse or other home services: No Patient Tobacco Use Status: Former Tobacco user Quit Date: 50 YEARS AGO Tobacco use type: Cigarette Smoked in Last 30 Days: No Are you DNR?: No Advance Directives: Yes Advance Directives on File: Yes Advance Directives Date on File: 04/11/21 Recently lost weight without trying: No Nutrition Risks: No Nutritional Risk Meds Allergies Allergy/AdvReac Type Severity Reaction Status Date / Time NSAIDS (Non-Steroidal Allergy Severe caused Verified 02/18/22 01:44 Anti-Inflamma peptic ulcer ciprofloxacin [From Cipro] Allergy Intermediate Rash Verified 02/18/22 01:44 nitrofurantoin Allergy Intermediate Rash Verified 02/18/22 01:44 aspirin [ASA] AdvReac Severe caused Verified 02/18/22 01:44 peptic ulcer sulfamethoxazole AdvReac Intermediate Joint Pain Verified 02/18/22 01:44 [From Bactrim] trimethoprim [From Bactrim] AdvReac Intermediate Joint Pain Verified 02/18/22 01:44 Home Medications Medication Instructions Recorded Confirmed Last Taken Type albuterol sulfate 90 mcg/actuation 2 puff PO QID PRN 12/08/20 10/31/21 Unknown History aerosol inhaler amlodipine 10 mg-benazepril 40 mg 1 cap PO DAILY 12/08/20 10/31/21 07/25/21 History capsule atorvastatin 10 mg tablet 10 mg PO BEDTIME 12/08/20 10/31/21 Unknown History budesonide-formoterol HFA 80 2 puff PO BID 12/08/20 10/31/21 11/21/21 History mcg-4.5 mcg/actuation aerosol inhaler carvedilol 6.25 mg tablet 6.25 mg PO BID 12/08/20 10/31/21 11/21/21 History cetirizine 10 mg tablet 10 mg PO DAILY 12/08/20 10/31/21 11/21/21 History fluticasone propionate 50 1 spray INTRANASAL DAILY 12/08/20 10/31/21 Unknown History mcg/actuation nasal spray,suspension inhalational spacing device #1 ea 12/08/20 Unknown History omeprazole magnesium 20 mg 20 mg PO DAILY PRN 04/06/21 10/31/21 Unknown History tablet,delayed release (Prilosec OTC) tranexamic acid 650 mg tablet 650 mg PO DAILY 10/31/21 10/31/21 Unknown History vitamin E (dl, acetate) 450 mg 450 mg PO DAILY 01/24/22 Unknown History (1,000 unit) capsule Exam Exam Date and Time: February 24, 2022 1100 Height,Weight and Vital Signs: Height 6 ft 2 in Weight 92.986 kg Pertinent Lab Results Pertinent Lab Results: Laboratory Tests 02/18/22 02/18/22 03:02 03:02 WBC 14.4 H Hgb 16.6 Hct 50.4 Plt Count 308 Sodium 137 Potassium 4.4 Chloride 103 Carbon Dioxide 25 BUN 37 H Creatinine 1.27 Assessment and Plan Assessment Anesthesia Assessment: Chart Reviewed Final Anesthetic Review Family History of Problems with Anesthesia: No History of Problems with Anesthesia: No Documented by User: Brandon Ferrer MD 02/27/22 17:05 [facility] Past Medical History Medical History (Updated 02/19/22 @ 00:02 by Sisi Berg) COVID-19 COVID-19 vaccine series completed Elevated cholesterol Erectile dysfunction after radical prostatectomy GERD (gastroesophageal reflux disease) Gross hematuria HTN (hypertension) Hx of radiation therapy Peptic ulcer Radiation cystitis Urinary bladder incontinence Surgical History Surgical History (Updated 02/22/22 @ 09:57 by Lexi Garvin, SHERIF) H/O colonoscopy History of bladder surgery Hx of appendectomy Hx of cystoscopy Hx of cystoscopy Hx of radical prostatectomy Social History Social History Are you a primary child daycare worker to a significant other at home: No Do you presently have visiting nurse or other home services: No Patient Tobacco Use Status: Former Tobacco user Quit Date: 50 YEARS AGO Tobacco use type: Cigarette Smoked in Last 30 Days: No Are you DNR?: No Advance Directives: Yes Advance Directives on File: Yes Advance Directives Date on File: 04/11/21 Recently lost weight without trying: No Nutrition Risks: No Nutritional Risk Meds Allergies Allergy/AdvReac Type Severity Reaction Status Date / Time NSAIDS (Non-Steroidal Allergy Severe caused Verified 02/18/22 01:44 Anti-Inflamma peptic ulcer ciprofloxacin [From Cipro] Allergy Intermediate Rash Verified 02/18/22 01:44 nitrofurantoin Allergy Intermediate Rash Verified 02/18/22 01:44 aspirin [ASA] AdvReac Severe caused Verified 02/18/22 01:44 peptic ulcer sulfamethoxazole AdvReac Intermediate Joint Pain Verified 02/18/22 01:44 [From Bactrim] trimethoprim [From Bactrim] AdvReac Intermediate Joint Pain Verified 02/18/22 01:44 Home Medications Medication Instructions Recorded Confirmed Last Taken Type albuterol sulfate 90 mcg/actuation 2 puff PO QID PRN 12/08/20 10/31/21 Unknown History aerosol inhaler amlodipine 10 mg-benazepril 40 mg 1 cap PO DAILY 12/08/20 10/31/21 07/25/21 History capsule atorvastatin 10 mg tablet 10 mg PO BEDTIME 12/08/20 10/31/21 Unknown History budesonide-formoterol HFA 80 2 puff PO BID 12/08/20 10/31/21 11/21/21 History mcg-4.5 mcg/actuation aerosol inhaler carvedilol 6.25 mg tablet 6.25 mg PO BID 12/08/20 10/31/21 11/21/21 History cetirizine 10 mg tablet 10 mg PO DAILY 12/08/20 10/31/21 11/21/21 History fluticasone propionate 50 1 spray INTRANASAL DAILY 12/08/20 10/31/21 Unknown History mcg/actuation nasal spray,suspension inhalational spacing device #1 ea 12/08/20 Unknown History omeprazole magnesium 20 mg 20 mg PO DAILY PRN 04/06/21 10/31/21 Unknown History tablet,delayed release (Prilosec OTC) tranexamic acid 650 mg tablet 650 mg PO DAILY 10/31/21 10/31/21 Unknown History vitamin E (dl, acetate) 450 mg 450 mg PO DAILY 01/24/22 Unknown History (1,000 unit) capsule Exam Airway Mallampati Class: II Partial: Upper Loose/Missing/Broken Teeth: Yes (Lower implants , caps ) Heart: S1, S2 Lungs: b/l breath sounds Assessment and Plan Assessment Anesthesia Assessment: Anesthesia Plan Discussed Final Anesthetic Review NPO: Yes ASA Class: III Final Preanesthetic Review: Meds/Allgs Chart Reviewed, Consent Obtained/Reviewed and Anes Risks/Benef Reviewed Patient Risk: Intermediate Procedure Risk: Intermediate Anesthetic Plan Anesthetic Plan: GA Disposition: Standard PACU
[2022-02-27] VITALS (8 sets, daily range): BP systolic 137–167; BP diastolic 67–84; PULSE 71–79; RESP 8–20; TEMP 36.7–37.6; O2SAT 94–99; BMI 26.9
[2022-02-27] MEDS: Lactated Ringers 1,000 ML 100 ML IVCONT (14:47)
--- NOTE | 2022-02-27 17:05 | P.HPSUR_ITS ---
Pre-Procedural Eval Section A Date of Service: 02/27/22 The patient is an INPATIENT: No Changes since office visit: No Cold of Flu in the past 2 weeks, No New Medical Problems, No Changes in Medication and No Patient answered all questions The History & Physical has been completed within 30 days and I have reviewed it.: Yes Section B Chief Complaint: malignant neoplasm of bladder Details of Present Illness: trans urethral resection of bladder tumor with gemcitabine Relevant Family History (Specify if Yes): No Relevant Social History: None Present Medications: see Short Stay Collaborative assessment Medical History: Significant History History of Previous Operations: Relevant previous surgery/procedure and date(s) Allergies: Allergies Allergy/AdvReac Type Severity Reaction Status Date / Time NSAIDS (Non-Steroidal Allergy Severe caused Verified 02/18/22 01:44 Anti-Inflamma peptic ulcer ciprofloxacin [From Cipro] Allergy Intermediate Rash Verified 02/18/22 01:44 nitrofurantoin Allergy Intermediate Rash Verified 02/18/22 01:44 aspirin [ASA] AdvReac Severe caused Verified 02/18/22 01:44 peptic ulcer sulfamethoxazole AdvReac Intermediate Joint Pain Verified 02/18/22 01:44 [From Bactrim] trimethoprim [From Bactrim] AdvReac Intermediate Joint Pain Verified 02/18/22 01:44 Review of Systems Sugical H&P ROS: Negative: Constitution, Cardiovascular, Respiratory, Neurological, Psychiatric, Hem-Onc, Allergic/Immunologic, Gastrointestinal, Genitourinary, Musculoskeletal, Integumentary, Endocrine and Eyes/Ears/Nose/T hroat Exam Surgical H&P Exam: Normal: HEENT, Normal: Heart, Normal: Lungs, Normal: Extremities, Normal: Abdomen, Normal: Skin and Normal: Neurological Plan Diagnosis/Plan: Unchanged ( TURBT with biopsy and gemcitabine) I have reviewed the history and physical and performed a pertinent physical examination on my patient. No changes have occurred unless specified.
--- NOTE | 2022-02-27 18:16 | W.PM.OPN ---
Operative Note Operative Note Date of Service: 02/27/22 Narrative: PreOperative Diagnosis: bladder cancer Post Operative Diagnosis: bladder cancer Procedure: TURBT - Large - multifocal area - and Gemcitabine installation Surgeon: Dr Mp Bashir Anesthesia: general Indications for procedure: external beam radiation for prostate cancer, bladder cancer. Has had high-grade on biopsy. Cytology has been atypical. Lesions seen on anterior wall and last cystoscopy. Procedure: After informed consent was verified the patient was brought to the operating room and placed in a supine position. Anesthesia was administered per protocol. the patient was placed in a modified dorsal lithotomy position and prepped and draped in a sterile fashion. Safety pause time-out was performed. Antibiotics were confirmed. A 26 Spanish continuous flow resectoscope was inserted per urethra. The visual obturator was used in order to minimize potential for urethral damage. The bladder was examined its entirety. There were areas of redness on the posterior wall consistent with hemorrhagic cystitis versus is superficial CIS. These areas were fulgurated with the bipolar cautery. The area anteriorly was fulgurated. The bladder also looked to have moderate to severe trabeculation and was small capacity secondary to damage from radiation. At the completion of the procedure the bladder was irrigated. The cystoscope was removed. A [address] Hardin catheter was inserted into the bladder. 10 cc was placed in the balloon. 2 g of gemcitabine in 100 cc of normal saline was instilled into the bladder. the flow from the catheter was left clamped. The inflow to the catheter was attached to a 3 L normal saline bag. The patient Tolerated the procedure well. They were extubated in the operating room and transferred in stable condition to the recovery area. Gemcitabine will remain in the bladder for 1 hour. At the completion of 1 hour the clamp will be removed. The gemcitabine will be allowed to egress to the urine collection bag. The 3 L bag of normal saline will be run at maximum rate through the bladder in order to dilute any residual gemcitabine. The Hardin catheter will then be removed. Pathology: none Drains: 3 way 20 Spanish 25 cc in balloon
== END 2022-02-27 20:08 | disposition home or self-care (01) ==
PROVIDERS: PCP Internal Medicine; Visit Provider Urology
PROC: 0TBB8ZZ Excision of Bladder, Via Natural or Artificial Opening Endoscopic (ICD-10-PCS; CPT 52240; principal; 2022-02-27 13:30)
DX: C67.9 Malignant neoplasm of bladder, unspecified (principal); N52.31 Erectile dysfunction following radical prostatectomy; Z85.46 Personal history of malignant neoplasm of prostate; N32.89 Other specified disorders of bladder; Z92.3 Personal history of irradiation; E78.00 Pure hypercholesterolemia, unspecified; I10 Essential (primary) hypertension; Z79.51 Long term (current) use of inhaled steroids; Z79.899 Other long term (current) drug therapy; Z88.2 Allergy status to sulfonamides; Z88.8 Allergy status to other drugs, medicaments and biological substances; Z87.891 Personal history of nicotine dependence; Z86.16 Personal history of COVID-19
CPT/HCPCS: 52240; J0690; J1100; J2405; J3010; J9201

== ENCOUNTER → 2022-03-03 10:06 | Outpatient (BNVA) | payer MEDICARE, SELFPAY | PROVIDERS: PCP Internal Medicine; Visit Provider Urology | DX: C67.9 Malignant neoplasm of bladder, unspecified (principal) | CPT/HCPCS: 51702 ==

== ENCOUNTER → 2022-03-07 09:52 | Outpatient (BNVA) | payer MEDICARE, SELFPAY | PROVIDERS: PCP Internal Medicine; Visit Provider Urology | DX: N30.40 Irradiation cystitis without hematuria (principal); C67.9 Malignant neoplasm of bladder, unspecified | CPT/HCPCS: 51700; 51798; 99212 ==

== ENCOUNTER → 2022-04-19 08:17 | Outpatient (BNVA) | payer MEDICARE, SELFPAY | PROVIDERS: PCP Internal Medicine; Visit Provider Urology | DX: N30.41 Irradiation cystitis with hematuria (principal); C61 Malignant neoplasm of prostate; C67.9 Malignant neoplasm of bladder, unspecified | CPT/HCPCS: Q3014 ==

== ENCOUNTER 2022-04-26 10:15 | Outpatient (REF) | payer MEDICARE, SELFPAY ==
[2022-04-26 13:55] LABS: Appearance Urine CLOUDY; Color Urine YELLOW; Glucose Urine UA NEG (NEG); Leukocyte Esterase Urine 2+ (NEG); Nitrite Urine POS (NEG); Specific Gravity - Urine >= 1.030 (1.005-1.025); Urine Blood 3+ (NEG); Urine Ketones NEG (NEG); Urine Protein 1+ MG/DL (NEG-TRACE)
[2022-04-26 14:19] LABS: Bacteria Urine TRACE /LPF; Mucus Urine TRACE /LPF; RBC Urine TNTC /HPF (0); Squamous Epithelial Cell Urine TRACE /LPF; WBC Urine TNTC /HPF (0-4)
== END 2022-04-26 10:16 | disposition home or self-care (01) ==
LOC: HO.LAB 10:15
PROVIDERS: Visit Provider Urology
DX: N39.0 Urinary tract infection, site not specified (principal)
CPT/HCPCS: 81001; 87086

== ENCOUNTER 2022-05-18 20:37 | Emergency (ER) | payer MEDICARE, SELFPAY ==
[2022-05-18 20:43] VITALS: BP 110/80; PULSE 71; RESP 20; TEMP 36; O2SAT 94; BMI 26.6
[2022-05-18 22:43] VITALS: BP 161/84; PULSE 69; RESP 20; TEMP 36.4; O2SAT 93
--- NOTE | 2022-05-18 23:15 | ED.MALEGU ---
HPI - Male Genitourinary General Chief complaint: Urogenital-Male Stated complaint: diff urinating Time Seen by Provider: 05/18/22 21:56 Source: patient Mode of arrival: ambulatory Limitations: no limitations History of Present Illness HPI Narrative: Patient's history of prostate cancer status post chemo treatment had chemo treatment today after the procedure had difficulty in urination had only few drops and then after 16:00 unable to urinate patient is on chronic antibiotic suppression treatment fosfomycin. No fever no chills no hematuria no flank patient had similar complaints in the past bladder scan showed 264 mL of urine at the time of triage Related Data Home Medications Medication Instructions Recorded Confirmed albuterol sulfate 90 mcg/actuation 2 puff PO QID PRN dyspnea 12/08/20 04/19/22 aerosol inhaler amlodipine 10 mg-benazepril 40 mg 1 cap PO DAILY 12/08/20 04/19/22 capsule atorvastatin 10 mg tablet 10 mg PO BEDTIME 12/08/20 04/19/22 budesonide-formoterol HFA 80 2 puff PO BID 12/08/20 04/19/22 mcg-4.5 mcg/actuation aerosol inhaler carvedilol 6.25 mg tablet 6.25 mg PO BID 12/08/20 04/19/22 cetirizine 10 mg tablet 10 mg PO DAILY 12/08/20 04/19/22 fluticasone propionate 50 1 spray intranasal DAILY 12/08/20 04/19/22 mcg/actuation nasal spray,suspension inhalational spacing device #1 ea 12/08/20 04/19/22 omeprazole magnesium 20 mg 20 mg PO DAILY PRN Acid Reflux 04/06/21 04/19/22 tablet,delayed release (Prilosec OTC) Previous Rx's Medication Instructions Recorded cefuroxime axetil 250 mg tablet 250 mg PO BID 10 days #20 tabs 12/20/21 amoxicillin 875 mg-potassium 1 tab PO BID 5 days #10 tabs 01/05/22 clavulanate 125 mg tablet levofloxacin 500 mg tablet 500 mg PO DAILY 5 days #5 tabs 01/24/22 cefuroxime axetil 500 mg tablet 500 mg PO BID #14 tabs 02/18/22 tranexamic acid 650 mg tablet 650 mg PO DAILY 90 days #90 tabs 04/19/22 fosfomycin tromethamine 3 gram 1 packet PO .weekly 4 weeks #4 ea 05/02/22 oral packet fosfomycin tromethamine 3 gram 1 packet PO Q3D 2 doses #2 ea 05/18/22 oral packet Allergies Allergy/AdvReac Type Severity Reaction Status Date / Time NSAIDS (Non-Steroidal Allergy Severe caused Verified 04/19/22 09:03 Anti-Inflamma peptic ulcer ciprofloxacin [From Cipro] Allergy Intermediate Rash Verified 04/19/22 09:03 nitrofurantoin Allergy Intermediate Rash Verified 04/19/22 09:03 aspirin [ASA] AdvReac Severe caused Verified 04/19/22 09:03 peptic ulcer sulfamethoxazole AdvReac Intermediate Joint Pain Verified 04/19/22 09:03 [From Bactrim] trimethoprim [From Bactrim] AdvReac Intermediate Joint Pain Verified 04/19/22 09:03 Review of Systems Review of Systems: Yes all other systems are reviewed and are negative PMFSH Past Medical History Medical History COVID-19 COVID-19 vaccine series completed Elevated cholesterol Erectile dysfunction after radical prostatectomy GERD (gastroesophageal reflux disease) Gross hematuria HTN (hypertension) Hx of radiation therapy Peptic ulcer Radiation cystitis Urinary bladder incontinence Surgical History H/O colonoscopy History of bladder surgery Hx of appendectomy Hx of cystoscopy Hx of cystoscopy Hx of radical prostatectomy Social History Social History Are you a primary post acute care nurse to a significant other at home: No Do you presently have visiting nurse or other home services: No Patient Tobacco Use Status: Former Tobacco user Quit Date: 50 YEARS AGO Tobacco use type: Cigarette Advance Directives: Yes Advance Directives on File: Yes Advance Directives Date on File: 04/11/21 Physical Exam Vital Signs: Vital Signs: Last Vital Signs Temp 97.6 F 05/18/22 22:43 Pulse 69 05/18/22 22:43 Resp 20 05/18/22 22:43 BP 161/84 H 05/18/22 22:43 Pulse Ox 93 05/18/22 22:43 O2 Del Method 05/18/22 22:43 BMI result Body Mass Index 26.6 Appearance: Alert. Oriented X3. No acute distress. ENT: Pharynx normal. Oral Mucosa moist Neck: Normal inspection. Neck supple. CVS: Normal heart rate and rhythm. Pulses normal. Respiratory: No respiratory distress. Equal air entry bilateral, no wheezing/rales/rhonchi Abdomen: Soft and nontender. Bowel sounds are present, no mass palpable, no CVA tenderness Skin: Skin warm and dry. Normal skin color. Normal skin turgor. Extremities: No lower extremity edema. No calf tenderness Neuro: Oriented X 3. No motor deficit. No sensory deficit.No cerebellar signs , cranial nerves II-XII intact MDM - Male Genitourinary MDM Narrative Medical decision making narrative: Hardin catheter was placed by the RN and leg bag placed patient feeling much better will discharge patient home Lab Data Attestation: I reviewed the patient's lab results. Labs: Lab Results 05/18/22 Range/Units 23:14 Urine Color YELLOW Urine Appearance CLOUDY Urine pH 5.5 (5.0-8.0) Ur Specific [place] 1.025 (1.005-1.025) Urine Protein 1+ H (NEG-TRACE) MG/DL Urine Glucose (UA) NEG (NEG) MG/DL Urine Ketones NEG (NEG) MG/DL Urine Blood 3+ H (NEG) Urine Nitrite NEG (NEG) Ur Leukocyte Esterase 1+ H (NEG) Urine RBC 15-29 H (0) /HPF Urine WBC 15-29 H (0-4) /HPF Urine WBC Clumps NOTED Ur Squamous Epith Cells NONE /LPF Ur Renal Epithelial Cell TRACE /LPF Amorphous Sediment 1+ /LPF Urine Bacteria 1+ /LPF Urine Mucus TRACE /LPF Discharge Plan Discharge Clinical Impression: Acute retention of urine Patient Disposition: Home, Self-Care Instructions: Urinary Retention in Men (ED) Additional Instructions: Hardin catheter care as advised Follow-up with your urologist Prescriptions: No Action cefuroxime axetil 250 mg tablet 250 mg PO BID 10 Days Qty: 20 0RF amoxicillin-pot clavulanate 875-125 mg tablet 1 tab PO BID 5 Days Qty: 10 0RF fosfomycin tromethamine 3 gram packet 1 packet PO .weekly 28 Days Qty: 4 5RF Rx Instructions: take on Sunday fosfomycin tromethamine 3 gram packet 1 packet PO Q3D Qty: 2 0RF Rx Instructions: start pack today for uti omeprazole magnesium [Prilosec OTC] 20 mg Tablet,Delayed Release (Dr/Ec) 20 mg PO DAILY PRN (Reason: Acid Reflux) cefuroxime axetil 500 mg tablet 500 mg PO BID Qty: 14 0RF amlodipine-benazepril 10-40 mg capsule 1 cap PO DAILY atorvastatin 10 mg tablet 10 mg PO BEDTIME carvedilol 6.25 mg tablet 6.25 mg PO BID fluticasone propionate 50 mcg/actuation spray,suspension 1 spray intranasal DAILY cetirizine 10 mg tablet 10 mg PO DAILY budesonide-formoterol 80-4.5 mcg/actuation HFA aerosol inhaler 2 puff PO BID albuterol sulfate 90 mcg/actuation HFA aerosol inhaler 2 puff PO QID PRN (Reason: dyspnea) (DME) inhalational spacing device Spacer See Rx Instructions .ROUTE DAILY Qty: 1 Rx Instructions: As directed tranexamic acid 650 mg tablet 650 mg PO DAILY 90 Days Qty: 90 0RF levofloxacin 500 mg tablet 500 mg PO DAILY 5 Days Qty: 5 0RF
[2022-05-18 23:22] LABS: Appearance Urine CLOUDY; Color Urine YELLOW; Glucose Urine UA NEG (NEG); Leukocyte Esterase Urine 1+ (NEG); Nitrite Urine NEG (NEG); PH 5.5 (5.0-8.0); Specific Gravity - Urine 1.025 (1.005-1.025); UACC Culture Trigger YES; Urine Blood 3+ (NEG); Urine Ketones NEG (NEG); Urine Protein 1+ MG/DL (NEG-TRACE)
[2022-05-18 23:28] LABS: Amorphous Sediment Urine 1+ /LPF; Bacteria Urine 1+ /LPF; Mucus Urine TRACE /LPF; Renal Epithelial Cells Urine TRACE /LPF; WBC Clumps Urine NOTED
== END 2022-05-18 23:39 | disposition home or self-care (01) ==
PROVIDERS: Emergency Provider Internal Medicine; PCP Internal Medicine
DX: R33.9 Retention of urine, unspecified (principal); C61 Malignant neoplasm of prostate; E78.5 Hyperlipidemia, unspecified; I10 Essential (primary) hypertension; Z92.21 Personal history of antineoplastic chemotherapy; Z79.899 Other long term (current) drug therapy; Z79.02 Long term (current) use of antithrombotics/antiplatelets; Z79.2 Long term (current) use of antibiotics; Z92.3 Personal history of irradiation; Z87.891 Personal history of nicotine dependence
CPT/HCPCS: 51702; 81001; 99283; 99284

== ENCOUNTER → 2022-06-01 15:12 | Outpatient (BNVA) | payer MEDICARE, SELFPAY | PROVIDERS: PCP Internal Medicine; Visit Provider Urology | DX: R33.9 Retention of urine, unspecified (principal); N39.0 Urinary tract infection, site not specified | CPT/HCPCS: 51701; 99212 ==

== ENCOUNTER → 2022-06-30 09:50 | Outpatient (BNVA) | payer MEDICARE, SELFPAY | PROVIDERS: PCP Internal Medicine; Visit Provider Urology | DX: R33.9 Retention of urine, unspecified (principal); C67.9 Malignant neoplasm of bladder, unspecified | CPT/HCPCS: 52000; 99212 ==

== ENCOUNTER 2022-07-17 12:14 | Day surgery (SDC) | payer MEDICARE, SELFPAY ==
--- NOTE | 2022-07-14 10:43 | P.CONAN_ITS ---
Documented by User: Betty Peterson NP 07/14/22 10:44 HPI - Anesthesia Eval Consult details Narrative: 82yo M for Left TUR Bladder Tumor, left bladder sidewall and retrograde s/p same 02/2022 with GA-LMA 5 PMFSH Active Problems Active Problems: All Active Problems (Updated 06/01/22 @ 15:46 by Shaila Feldman RN) Incomplete bladder emptying (Acute) Prostate cancer (Acute) Radiation cystitis (Acute) Hematuria due to cystitis (Acute) Bladder cancer (Acute) Urinary urgency (Acute) Chronic UTI (urinary tract infection) (Acute) Past Medical History Medical History COVID-19 COVID-19 vaccine series completed Elevated cholesterol Erectile dysfunction after radical prostatectomy GERD (gastroesophageal reflux disease) Gross hematuria HTN (hypertension) Hx of radiation therapy Incomplete bladder emptying Peptic ulcer Radiation cystitis Urinary bladder incontinence Family History Family history of problems with anesthesia: No Surgical History Surgical History H/O colonoscopy History of bladder surgery Hx of appendectomy Hx of cystoscopy Hx of cystoscopy Hx of radical prostatectomy History of Problems with Anesthesia: No Social History Social History Are you a primary lpn care manager to a significant other at home: No Do you presently have visiting nurse or other home services: No Patient Tobacco Use Status: Former Tobacco user Quit Date: 50 YEARS AGO Tobacco use type: Cigarette Second Hand Smoke Exposure: No Use of substances other than those prescribed or required for medical reasons: No Are you DNR?: No Advance Directives: Yes Advance Directives Information Provided: No Advance Directives on File: Yes Advance Directives Date on File: 04/11/21 Meds Allergies Allergy/AdvReac Type Severity Reaction Status Date / Time NSAIDS (Non-Steroidal Allergy Severe caused Verified 06/29/22 15:31 Anti-Inflamma peptic ulcer ciprofloxacin [From Cipro] Allergy Intermediate Rash Verified 06/29/22 15:31 nitrofurantoin Allergy Intermediate Rash Verified 06/29/22 15:31 aspirin [ASA] AdvReac Severe caused Verified 06/29/22 15:31 peptic ulcer sulfamethoxazole AdvReac Intermediate Joint Pain Verified 06/29/22 15:31 [From Bactrim] trimethoprim [From Bactrim] AdvReac Intermediate Joint Pain Verified 06/29/22 15:31 Home Medications Medication Instructions Recorded Confirmed Last Taken Type albuterol sulfate 90 mcg/actuation 2 puff PO QID PRN dyspnea 12/08/20 04/19/22 Unknown History aerosol inhaler amlodipine 10 mg-benazepril 40 mg 1 cap PO DAILY 12/08/20 04/19/22 07/25/21 History capsule atorvastatin 10 mg tablet 10 mg PO BEDTIME 12/08/20 04/19/22 Unknown History budesonide-formoterol HFA 80 2 puff PO BID 12/08/20 04/19/22 11/21/21 History mcg-4.5 mcg/actuation aerosol inhaler carvedilol 6.25 mg tablet 6.25 mg PO BID 12/08/20 04/19/22 11/21/21 History cetirizine 10 mg tablet 10 mg PO DAILY 12/08/20 04/19/22 11/21/21 History fluticasone propionate 50 1 spray intranasal DAILY 12/08/20 04/19/22 Unknown History mcg/actuation nasal spray,suspension inhalational spacing device #1 ea 12/08/20 04/19/22 Unknown History omeprazole magnesium 20 mg 20 mg PO DAILY PRN Acid Reflux 04/06/21 04/19/22 Unknown History tablet,delayed release (Prilosec OTC) prednisolone acetate 1 % eye 0 drp ophthalmic (eye) 06/29/22 Unknown History drops,suspension Exam Exam Date and Time: July 14, 2022 1043 Pertinent Lab Results Pertinent Lab Results: Laboratory Tests 02/18/22 02/18/22 03:02 03:02 WBC 14.4 H Hgb 16.6 Hct 50.4 Plt Count 308 Sodium 137 Potassium 4.4 Chloride 103 Carbon Dioxide 25 BUN 37 H Creatinine 1.27 Assessment and Plan Assessment Anesthesia Assessment: Chart Reviewed Final Anesthetic Review Family History of Problems with Anesthesia: No History of Problems with Anesthesia: No Documented by User: Makenzie Calderón MD 07/17/22 15:21 [facility] Past Medical History Medical History COVID-19 COVID-19 vaccine series completed Elevated cholesterol Erectile dysfunction after radical prostatectomy GERD (gastroesophageal reflux disease) Gross hematuria HTN (hypertension) Hx of radiation therapy Incomplete bladder emptying Peptic ulcer Radiation cystitis Urinary bladder incontinence Surgical History Surgical History H/O colonoscopy History of bladder surgery Hx of appendectomy Hx of cystoscopy Hx of cystoscopy Hx of radical prostatectomy Social History Social History Are you a primary lpn care manager to a significant other at home: No Do you presently have visiting nurse or other home services: No Patient Tobacco Use Status: Former Tobacco user Quit Date: 50 YEARS AGO Tobacco use type: Cigarette Second Hand Smoke Exposure: No Use of substances other than those prescribed or required for medical reasons: No Are you DNR?: No Advance Directives: Yes Advance Directives Information Provided: No Advance Directives on File: Yes Advance Directives Date on File: 04/11/21 Meds Allergies Allergy/AdvReac Type Severity Reaction Status Date / Time NSAIDS (Non-Steroidal Allergy Severe caused Verified 06/29/22 15:31 Anti-Inflamma peptic ulcer ciprofloxacin [From Cipro] Allergy Intermediate Rash Verified 06/29/22 15:31 nitrofurantoin Allergy Intermediate Rash Verified 06/29/22 15:31 aspirin [ASA] AdvReac Severe caused Verified 06/29/22 15:31 peptic ulcer sulfamethoxazole AdvReac Intermediate Joint Pain Verified 06/29/22 15:31 [From Bactrim] trimethoprim [From Bactrim] AdvReac Intermediate Joint Pain Verified 06/29/22 15:31 Home Medications Medication Instructions Recorded Confirmed Last Taken Type albuterol sulfate 90 mcg/actuation 2 puff PO QID PRN dyspnea 12/08/20 04/19/22 Unknown History aerosol inhaler amlodipine 10 mg-benazepril 40 mg 1 cap PO DAILY 12/08/20 04/19/22 07/25/21 History capsule atorvastatin 10 mg tablet 10 mg PO BEDTIME 12/08/20 04/19/22 Unknown History budesonide-formoterol HFA 80 2 puff PO BID 12/08/20 04/19/22 11/21/21 History mcg-4.5 mcg/actuation aerosol inhaler carvedilol 6.25 mg tablet 6.25 mg PO BID 12/08/20 04/19/22 11/21/21 History cetirizine 10 mg tablet 10 mg PO DAILY 12/08/20 04/19/22 11/21/21 History fluticasone propionate 50 1 spray intranasal DAILY 12/08/20 04/19/22 Unknown History mcg/actuation nasal spray,suspension inhalational spacing device #1 ea 12/08/20 04/19/22 Unknown History omeprazole magnesium 20 mg 20 mg PO DAILY PRN Acid Reflux 04/06/21 04/19/22 Unknown History tablet,delayed release (Prilosec OTC) prednisolone acetate 1 % eye 0 drp ophthalmic (eye) 06/29/22 Unknown History drops,suspension Exam Airway Mallampati Class: II TM Dist: >3cm Neck ROM: Full Partial: Upper and Lower Loose/Missing/Broken Teeth: Yes, Upper and Lower Heart: RRR Lungs: CTA Assessment and Plan Assessment Anesthesia Assessment: Anesthesia Plan Discussed Final Anesthetic Review NPO: Yes ASA Class: II Final Preanesthetic Review: Meds/Allgs Chart Reviewed, Consent Obtained/Reviewed and Anes Risks/Benef Reviewed Patient Risk: Low Procedure Risk: Low Anesthetic Plan Anesthetic Plan: GA Disposition: Standard PACU
[2022-07-17] VITALS (9 sets, daily range): BP systolic 149–167; BP diastolic 72–87; PULSE 58–63; RESP 16–18; TEMP 36.2–36.8; O2SAT 93–98; BMI 26.4
--- NOTE | 2022-07-17 15:03 | MHC.SHP ---
Pre-Procedural Eval Section A Date of Service: 07/17/22 The patient is an INPATIENT: No Changes since office visit: No Cold of Flu in the past 2 weeks, No New Medical Problems, No Changes in Medication and No Patient answered all questions The History & Physical has been completed within 30 days and I have reviewed it.: Yes Section B Chief Complaint: neoplasm of bladder Details of Present Illness: Cystoscopy,fulguration, mitomycin-C Allergies: Allergies Allergy/AdvReac Type Severity Reaction Status Date / Time NSAIDS (Non-Steroidal Allergy Severe caused Verified 06/29/22 15:31 Anti-Inflamma peptic ulcer ciprofloxacin [From Cipro] Allergy Intermediate Rash Verified 06/29/22 15:31 nitrofurantoin Allergy Intermediate Rash Verified 06/29/22 15:31 aspirin [ASA] AdvReac Severe caused Verified 06/29/22 15:31 peptic ulcer sulfamethoxazole AdvReac Intermediate Joint Pain Verified 06/29/22 15:31 [From Bactrim] trimethoprim [From Bactrim] AdvReac Intermediate Joint Pain Verified 06/29/22 15:31 Review of Systems Sugical H&P ROS: Negative: Constitution, Cardiovascular, Respiratory, Neurological, Psychiatric, Hem-Onc, Allergic/Immunologic, Gastrointestinal, Genitourinary, Musculoskeletal, Integumentary, Endocrine and Eyes/Ears/Nose/Throat Exam Surgical H&P Exam: Normal: HEENT, Normal: Heart, Normal: Lungs, Normal: Extremities, Normal: Abdomen, Normal: Skin and Normal: Neurological Plan Diagnosis/Plan: Unchanged I have reviewed the history and physical and performed a pertinent physical examination on my patient. No changes have occurred unless specified.
--- NOTE | 2022-07-20 08:51 | P.OP_ITS ---
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 Anesthesia was administered per protocol. The patient was placed in a modified dorsal lithotomy position and prepped and draped in a sterile fashion. Safety pause time-out was performed. Antibiotics were confirmed. A 26 [place] continuous flow resectoscope was inserted per urethra. The visual obturator was used in order to minimize potential for urethral damage. The area around left UO which was not able to be visualized was carefully resected as this was inflamed. Fulguration was performed on the anterior aspect. No specimen was available. At the completion of the procedure the bladder was irrigated. The cystoscope was removed. A [address] Hardin catheter was inserted into the bladder. 10 cc was placed in the balloon. Mitomycin C in 40 cc of normal saline was instilled into the bladder. The flow from the catheter was left clamped. The inflow to the catheter was attached to a 3 L normal saline bag. The patient tolerated the procedure well. They were extubated in the operating room and transferred in stable condition to the recovery area. Mitomycin will remain in the bladder for 1 hour. At the completion of 1 hour the clamp will be removed. The gemcitabine will be allowed to egress to the urine collection bag. The 3 L bag of normal saline will be run at maximum rate through the bladder in order to dilute any residual gemcitabine. He will go home with Hardin catheter for removal 3 days. Pathology: None Drains: Through Hardin catheter
== END 2022-07-17 18:54 | disposition home or self-care (01) ==
PROVIDERS: PCP Internal Medicine; Visit Provider Urology
PROC: 0TBB8ZZ Excision of Bladder, Via Natural or Artificial Opening Endoscopic (ICD-10-PCS; CPT 52234; principal; 2022-07-17 13:20)
DX: C67.9 Malignant neoplasm of bladder, unspecified (principal); Z92.3 Personal history of irradiation; N52.9 Male erectile dysfunction, unspecified; Z90.79 Acquired absence of other genital organ(s); E78.00 Pure hypercholesterolemia, unspecified; I10 Essential (primary) hypertension; R31.0 Gross hematuria; Z79.51 Long term (current) use of inhaled steroids; Z79.899 Other long term (current) drug therapy; Z88.1 Allergy status to other antibiotic agents; Z88.2 Allergy status to sulfonamides; Z88.8 Allergy status to other drugs, medicaments and biological substances
CPT/HCPCS: 52234; 51720; C1769; J1956; J3010; J9280; Q9965

== ENCOUNTER → 2022-07-21 10:48 | Outpatient (BNVA) | payer MEDICARE, SELFPAY | PROVIDERS: PCP Internal Medicine; Visit Provider Urology | DX: R33.9 Retention of urine, unspecified (principal) | CPT/HCPCS: 51702; 99211 ==

== ENCOUNTER → 2022-07-27 11:20 | Outpatient (BNVA) | payer MEDICARE, SELFPAY | PROVIDERS: PCP Internal Medicine; Visit Provider Urology | DX: C67.9 Malignant neoplasm of bladder, unspecified (principal) | CPT/HCPCS: 51702 ==